=== PATIENT | female | born 1960 | race Hispanic/Latino ===

== ENCOUNTER 2017-09-09 15:23 | Emergency (ER) | payer OTHER ==
[~2017-09-09 15:23] MED LIST: ATOR10 PO; BACL10TA PO; COLC0.6C3 PO; LISI1TAB11 PO; PANT40TA25 PO
[2017-09-09 16:08] LABS: BASOPHILS % (AUTO) 0.3 % (0.0-5.0); EOSINOPHILS % (AUTO) 0.9 % (0.0-8.0); LYMPHOCYTES % (AUTO) 21.7 % (21.0-51.0); MEAN CORPUSCULAR HEMOGLOBIN 28.3 pg (27.0-33.0); MEAN CORPUSCULAR HGB CONC 33.8 g/dL (32.0-36.0); MEAN CORPUSCULAR VOLUME 83.5 fL (79-99); MONOCYTES % (AUTO) 6.6 % (3.0-13.0); NEUTROPHILS % (AUTO) 70.5 % (40.0-77.0); NUCLEATED RED BLOOD CELLS 0.1 % (0.0-0.19); PLATELET COUNT (AUTO) 163 K/uL (130-400); RED BLOOD CELL COUNT(AUTO) 4.91 MIL/uL (4.00-5.50); RED CELL DISTRIBUTION WIDTH 15.3 % (11.0-15.5); WHITE BLOOD COUNT (AUTO) 5.1 K/uL (4.8-10.8)
[2017-09-09 16:27] LABS: APPEARANCE,URINE Clear (CLEAR); BILIRUBIN,URINE Negative (NEGATIVE); COLOR,URINE Yellow (YELLOW); GLUCOSE, URINE (UA) Negative (NEGATIVE); KETONES,URINE Negative (NEGATIVE); LEUKOCYTE ESTERASE ,URINE Negative (NEGATIVE); NITRATE,URINE Negative (NEGATIVE); OCCULT BLOOD,URINE Negative (NEGATIVE); PROTEIN,URINE Negative (NEGATIVE); UROBILINOGEN,URINE 0.2 mg/dL (0.2-1.0)
[2017-09-09 16:29] LABS: POTASSIUM 3.8 mmol/L (3.5-5.1)
[2017-09-09] MEDS ORDERED: METOCLOPRAMIDE 10 MG/2 ML VIAL ONE (16:30)
[2017-09-09] MEDS ORDERED: SODIUM CHLORIDE 0.9% 1000ML 1,000 ML IV ONE (16:30)
[2017-09-09] MEDS ORDERED: MECLIZINE HCL 25 MG TABLET ONE (16:30)
[2017-09-09 16:34] LABS: ALBUMIN 4.1 g/dL (3.5-5.0); BILIRUBIN,TOTAL 0.4 mg/dL (0.2-1.0); TOTAL PROTEIN, SERUM 7.9 g/dL (6.0-8.3)
[2017-10-09] MEDS ORDERED: LORA10TA7 PO (18:27)
== END 2017-09-09 18:53 | disposition home or self-care (01) ==
LOC: EDH 15:23
DX: R42 Dizziness and giddiness (principal); R94.5 Abnormal results of liver function studies; I10 Essential (primary) hypertension; M10.9 Gout, unspecified; M19.90 Unspecified osteoarthritis, unspecified site; Z88.8 Allergy status to other drugs, medicaments and biological substances; Z90.710 Acquired absence of both cervix and uterus
CPT/HCPCS: 36415; 71045; 80053; 81003; 84484; 85025; 93005; 96361; 96374; 99285; J2765; J7030

== ENCOUNTER → 2018-07-04 | Outpatient (CLI) | payer OTHER ==
[~2018-07-04] MED LIST changes: +LORA10TA7 PO
== END | disposition home or self-care (01) ==
LOC: RAH 08:44
PROVIDERS: ATTEND Family Medicine
DX: Z12.31 Encounter for screening mammogram for malignant neoplasm of breast (principal)
CPT/HCPCS: 77067

== ENCOUNTER → 2019-07-10 | Outpatient (CLI) | payer OTHER ==
[~2019-07-10] MED LIST changes: -LISI1TAB11 PO; +LISI1TAB28 PO
== END | disposition home or self-care (01) ==
LOC: RAH 14:49
PROVIDERS: ATTEND Family Medicine
DX: Z12.31 Encounter for screening mammogram for malignant neoplasm of breast (principal)
CPT/HCPCS: 77067

== ENCOUNTER → 2020-07-13 | Outpatient (CLI) | payer OTHER ==
[~2020-07-13] MED LIST changes: -LISI1TAB28 PO; +LISI1TAB51 PO; -PANT40TA25 PO; +PANT40TA54 PO
== END | disposition home or self-care (01) ==
LOC: RAH 13:42
PROVIDERS: ATTEND Family Medicine
DX: Z12.31 Encounter for screening mammogram for malignant neoplasm of breast (principal)
CPT/HCPCS: 77067

== ENCOUNTER → 2020-07-20 | Outpatient (CLI) | payer OTHER | END | disposition home or self-care (01) | LOC: SHCH 08:11 | PROVIDERS: ATTEND Internal Medicine Cardiovascular Disease | DX: R07.89 Other chest pain (principal) | CPT/HCPCS: 93306; 93356 ==

== ENCOUNTER 2021-03-25 18:32 | Emergency (ER) | payer OTHER ==
[~2021-03-25] VITALS: Ht 160 cm; Wt 92.5 kg
[2021-03-25 18:33] VITALS: BP 134/83
[2021-03-25] MEDS ORDERED: ONDANSETRON 4MG INJ IVP ONE (19:00)
[2021-03-25] MEDS ORDERED: DICYCLOMINE 20MG (10MG/ML) AMP IM ONE (19:00)
[2021-03-25] MEDS ORDERED: 0.9%NACL 1000ML 1,000 ML IV ONE ×2 (19:00→19:14)
[2021-03-25] MEDS ORDERED: MORPHINE 4 MG SYG IVP ONE (19:00)
[2021-03-25] MEDS ORDERED: ACETAMINOPHEN 325 MG TAB PO ONE (19:00)
[2021-03-25] MEDS ORDERED: PANTOPRAZOLE 40 MG/VIAL IVP ONE (19:00)
[2021-03-25] MEDS ORDERED: PANTOPRAZOLE 40 MG/VIAL ONE (19:13)
[2021-03-25] MEDS ORDERED: MORPHINE 4 MG SYG ONE (19:13)
[2021-03-25] MEDS ORDERED: ACETAMINOPHEN 325 MG TAB ONE (19:13)
[2021-03-25] MEDS ORDERED: ONDANSETRON 4MG INJ ONE (19:13)
[2021-03-25] MEDS ORDERED: DICYCLOMINE HCL 20 MG TAB ONE (19:13)
[2021-03-25 19:36] LABS: BASOPHILS % (AUTO) 0.3 % (0.0-5.0); EOSINOPHILS % (AUTO) 0.1 % (0.0-8.0); HEMATOCRIT 38.3 % (36-48); LYMPHOCYTES % (AUTO) 16.5 % (21.0-51.0); MEAN CORPUSCULAR HEMOGLOBIN 31.3 pg (27.0-33.0); MEAN CORPUSCULAR HGB CONC 34.2 g/dL (32.0-36.0); MEAN CORPUSCULAR VOLUME 91.6 fL (79-99); MONOCYTES % (AUTO) 7.4 % (3.0-13.0); NEUTROPHILS % (AUTO) 75.4 % (40.0-77.0); PLATELET COUNT (AUTO) 170 K/uL (130-400); RED BLOOD CELL COUNT(AUTO) 4.18 MIL/uL (4.00-5.50); RED CELL DISTRIBUTION WIDTH 13.3 % (11.0-15.5); WHITE BLOOD COUNT (AUTO) 7.5 K/uL (4.8-10.8)
[2021-03-25 19:48] VITALS: BP 149/70
[2021-03-25 19:48] LABS: CREATININE 0.9 mg/dL (0.5-1.5); POTASSIUM 3.6 mmol/L (3.5-5.1)
[2021-03-25 19:52] LABS: ALBUMIN 4.3 g/dL (3.5-5.0); BILIRUBIN,TOTAL 0.7 mg/dL (0.2-1.0)
[2021-03-25 19:53] LABS: APPEARANCE,URINE Clear (CLEAR); BILIRUBIN,URINE Negative (NEGATIVE); COLOR,URINE Yellow (YELLOW); GLUCOSE, URINE (UA) Negative (NEGATIVE); KETONES,URINE Negative (NEGATIVE); LEUKOCYTE ESTERASE ,URINE Negative (NEGATIVE); NITRATE,URINE Negative (NEGATIVE); OCCULT BLOOD,URINE Negative (NEGATIVE); PH,URINE 5.5 (5.0-8.0); PROTEIN,URINE Negative (NEGATIVE)
[2021-03-25 20:30] VITALS: BP 123/73
[2021-03-25 21:42] VITALS: BP_SYST 106; BP_SYST 123; BP_DIAS 61; BP_DIAS 73
[2021-03-25 22:38] VITALS: BP 102/67
[2021-03-25] MEDS ORDERED: PANT40TA54 PO (23:42)
[2021-03-25] MEDS ORDERED: DICY20TA2 PO (23:42)
[2021-03-25] MEDS ORDERED: ACET-3194 PO (23:42)
[2021-03-25 23:48] VITALS: BP 106/65
== END 2021-03-26 00:21 | disposition home or self-care (01) ==
LOC: EDH 18:32
DX: K29.00 Acute gastritis without bleeding (principal); I10 Essential (primary) hypertension; F41.9 Anxiety disorder, unspecified; F32.9 Major depressive disorder, single episode, unspecified; Z90.710 Acquired absence of both cervix and uterus; Z79.899 Other long term (current) drug therapy
CPT/HCPCS: 36415; 71045; 74177; 76705; 80053; 81003; 83690; 84484; 85025; 93005 ×2; 96361; 96374; 96375; 99285; C9113; J2270; J2405; J7030

== ENCOUNTER 2021-04-27 09:33 | Inpatient (IN) | payer OTHER ==
[~2021-04-27] VITALS: Ht 157.5 cm; Wt 118.1 kg
[2021-04-27] VITALS (8 sets, daily range): BP systolic 92–111; BP diastolic 49–71
[~2021-04-27 09:33] MED LIST changes: +ACET-3194 PO; +DICY20TA2 PO
[2021-04-27] MEDS ORDERED: FAMOTIDINE 20MG VIAL IV SCH (10:30)
[2021-04-27] MEDS ORDERED: ONDANSETRON 4MG INJ IVP SCH (10:30)
[2021-04-27] MEDS ORDERED: 0.9%NACL 1000ML 1,000 ML IV SCH (10:30)
[2021-04-27 10:36] LABS: BASOPHILS % (AUTO) 0.5 % (0.0-5.0); HEMATOCRIT 47.1 % (36-48); LYMPHOCYTES % (AUTO) 16.2 % (21.0-51.0); MEAN CORPUSCULAR HEMOGLOBIN 30.3 pg (27.0-33.0); MEAN CORPUSCULAR HGB CONC 33.5 g/dL (32.0-36.0); MEAN CORPUSCULAR VOLUME 90.4 fL (79-99); MONOCYTES % (AUTO) 12.3 % (3.0-13.0); NEUTROPHILS % (AUTO) 70.6 % (40.0-77.0); PLATELET COUNT (AUTO) 242 K/uL (130-400); RED BLOOD CELL COUNT(AUTO) 5.21 MIL/uL (4.00-5.50); WHITE BLOOD COUNT (AUTO) 5.7 K/uL (4.8-10.8)
[2021-04-27 10:45] LABS: CREATININE 2.1 mg/dL (0.5-1.5)
[2021-04-27 10:46] LABS: POTASSIUM 3.9 mmol/L (3.5-5.1)
[2021-04-27 10:50] LABS: BILIRUBIN,TOTAL 1.9 mg/dL (0.2-1.0); TOTAL PROTEIN, SERUM 9.1 g/dL (6.0-8.3)
[2021-04-27] MEDS ORDERED: MORPHINE 2 MG SYG ONE (12:53)
[2021-04-27] MEDS ORDERED: MORPHINE 2 MG SYG IM SCH (13:00)
[2021-04-27 13:25] LABS: APPEARANCE,URINE Clear (CLEAR); BILIRUBIN,URINE Negative (NEGATIVE); COLOR,URINE Dark Yellow (YELLOW); GLUCOSE, URINE (UA) Negative (NEGATIVE); KETONES,URINE Trace mg/dL (NEGATIVE); LEUKOCYTE ESTERASE ,URINE Trace (NEGATIVE); NITRATE,URINE Negative (NEGATIVE); OCCULT BLOOD,URINE Negative (NEGATIVE); PROTEIN,URINE Trace mg/dL (NEGATIVE)
[2021-04-27] MEDS ORDERED: ZOSYN 3.375GM+NS 50ML 3.38 GM in 0.9%NACL 50ML 50 ML IV SCH (13:30)
[2021-04-27] MEDS ORDERED: 0.9%NACL 1000ML 1,000 ML IV ONE ×2 (13:30→15:00)
[2021-04-27 13:31] LABS: BACTERIA,URINE Rare /HPF (None Seen); RBC,URINE 0-1 /HPF (0-1); SQUAMOUS EPITHELIAL CELL,UR Few /HPF (0-2); WBC,URINE 0-1 /HPF (0-1)
[2021-04-27] MEDS: 0.9%NACL 50ML 50 ML IV SCH (13:36)
[2021-04-27] MEDS: ZOSYN 3.375GM +NS 50ML IV SCH (13:36)
[2021-04-27] MEDS ORDERED: LACTATED RINGERS 1000ML 1,000 ML IV ONE (15:41)
[2021-04-27] MEDS ORDERED: LACTATED RINGERS 1000ML 1,000 ML IV SCH (19:30)
[2021-04-27] MEDS: FAMOTIDINE 20MG VIAL IV SCH (21:00)
[2021-04-28] VITALS (7 sets, daily range): BP systolic 92–126; BP diastolic 48–75
[2021-04-28] MEDS: 0.9%NACL 50ML 50 ML IV SCH (01:21)
[2021-04-28] MEDS: ZOSYN 3.375GM +NS 50ML IV SCH ×2 (01:21→14:32)
[2021-04-28] MEDS ORDERED: LACTATED RINGERS 1000ML 1,000 ML IV ONE (03:55)
[2021-04-28] MEDS: LACTATED RINGERS 1000ML 1,000 ML IV SCH ×2 (04:30→14:32)
[2021-04-28] MEDS ORDERED: CALC-1009 PO (04:44)
[2021-04-28] MEDS ORDERED: AEC81 PO (04:44)
[2021-04-28] MEDS ORDERED: FERR-82 PO (04:44)
[2021-04-28] MEDS ORDERED: LISI20TA24 PO (04:44)
[2021-04-28 05:41] LABS: BASOPHILS % (AUTO) 0.2 % (0.0-5.0); EOSINOPHILS % (AUTO) 0.2 % (0.0-8.0); HEMATOCRIT 36.1 % (36-48); LYMPHOCYTES % (AUTO) 26.9 % (21.0-51.0); MEAN CORPUSCULAR HEMOGLOBIN 30.3 pg (27.0-33.0); MEAN CORPUSCULAR HGB CONC 33.5 g/dL (32.0-36.0); MEAN CORPUSCULAR VOLUME 90.5 fL (79-99); NEUTROPHILS % (AUTO) 56.2 % (40.0-77.0); PLATELET COUNT (AUTO) 151 K/uL (130-400); RED BLOOD CELL COUNT(AUTO) 3.99 MIL/uL (4.00-5.50); RED CELL DISTRIBUTION WIDTH 13.6 % (11.0-15.5); WHITE BLOOD COUNT (AUTO) 4.1 K/uL (4.8-10.8)
[2021-04-28 06:14] LABS: ALBUMIN 3.2 g/dL (3.5-5.0); BILIRUBIN,TOTAL 1.6 mg/dL (0.2-1.0); CREATININE 1.2 mg/dL (0.5-1.5); POTASSIUM 3.4 mmol/L (3.5-5.1); TOTAL PROTEIN, SERUM 6.7 g/dL (6.0-8.3)
[2021-04-28] MEDS ORDERED: FEBU80TA3 PO (08:55)
[2021-04-28] MEDS ORDERED: RABE20TA30 PO (08:57)
[2021-04-28] MEDS ORDERED: FERR-72 PO (08:59)
[2021-04-28] MEDS ORDERED: FEBUXOSTAT 40 MG TAB PO SCH (09:00)
[2021-04-28] MEDS: FAMOTIDINE 20MG VIAL IV SCH (20:42)
[2021-04-29] MEDS: LACTATED RINGERS 1000ML 1,000 ML IV SCH ×2 (00:30→20:52)
[2021-04-29 01:18] VITALS: BP 113/65
[2021-04-29] MEDS: ZOSYN 3.375GM +NS 50ML IV SCH ×2 (01:28→13:02)
[2021-04-29] MEDS: 0.9%NACL 50ML 50 ML IV SCH ×3 (01:29→13:02)
[2021-04-29 04:30] VITALS: BP 106/66
[2021-04-29 06:01] LABS: HEMATOCRIT 37.9 % (36-48); MEAN CORPUSCULAR HEMOGLOBIN 30.3 pg (27.0-33.0); MEAN CORPUSCULAR HGB CONC 32.7 g/dL (32.0-36.0); MEAN CORPUSCULAR VOLUME 92.7 fL (79-99); RED BLOOD CELL COUNT(AUTO) 4.09 MIL/uL (4.00-5.50); RED CELL DISTRIBUTION WIDTH 13.3 % (11.0-15.5); WHITE BLOOD COUNT (AUTO) 4.2 K/uL (4.8-10.8)
[2021-04-29 06:32] LABS: CREATININE 0.9 mg/dL (0.5-1.5); POTASSIUM 3.9 mmol/L (3.5-5.1)
[2021-04-29 08:00] VITALS: BP 108/62
[2021-04-29] MEDS ORDERED: MAGNESIUM CITRATE 296 ML SOLUTION PO ONE (09:00)
[2021-04-29 16:45] VITALS: BP 112/60
[2021-04-29 20:00] VITALS: BP 105/66
[2021-04-29] MEDS: FAMOTIDINE 20MG VIAL IV SCH (20:52)
[2021-04-29] MEDS: HYDROMORPHONE 0.5 MG SYG (0.5MG/0.5ML) IVP PRN (23:15)
[2021-04-29] MEDS: ONDANSETRON 4MG INJ IVP PRN (23:15)
[2021-04-29 23:32] VITALS: BP 115/67
[2021-04-30] MEDS: 0.9%NACL 50ML 50 ML IV SCH ×2 (03:26→13:31)
[2021-04-30] MEDS: ZOSYN 3.375GM +NS 50ML IV SCH ×2 (03:26→13:31)
[2021-04-30] MEDS: ONDANSETRON 4MG INJ IVP PRN (03:36)
[2021-04-30] MEDS: HYDROMORPHONE 0.5 MG SYG (0.5MG/0.5ML) IVP PRN ×3 (03:37→20:25)
[2021-04-30 04:00] VITALS: BP 117/70
[2021-04-30 08:50] VITALS: BP 110/69
[2021-04-30] MEDS: LACTATED RINGERS 1000ML 1,000 ML IV SCH ×2 (13:36→16:30)
[2021-04-30 15:14] VITALS: BP 97/58
[2021-04-30] MEDS ORDERED: VANCOMYCIN 1G/250ML KIT 250 ML IV ONE (17:17)
[2021-04-30] MEDS ORDERED: MAGNESIUM CITRATE 296 ML SOLUTION ONE (17:34)
[2021-04-30] MEDS ORDERED: MAGNESIUM CITRATE 296 ML SOLUTION PO ONE (18:00)
[2021-04-30 18:16] VITALS: BP 105/65
[2021-04-30 20:00] VITALS: BP 107/72
[2021-04-30] MEDS: FAMOTIDINE 20MG VIAL IV SCH (20:25)
[2021-05-01] VITALS (8 sets, daily range): BP systolic 85–125; BP diastolic 46–70
[2021-05-01] MEDS: 0.9%NACL 50ML 50 ML IV SCH (01:25)
[2021-05-01] MEDS: ZOSYN 3.375GM +NS 50ML IV SCH ×3 (01:25→20:37)
[2021-05-01] MEDS: HYDROMORPHONE 0.5 MG SYG (0.5MG/0.5ML) IVP PRN (02:13)
[2021-05-01 05:03] LABS: HEMATOCRIT 46.3 % (36-48); MEAN CORPUSCULAR HEMOGLOBIN 30.2 pg (27.0-33.0); MEAN CORPUSCULAR HGB CONC 32.8 g/dL (32.0-36.0); MEAN CORPUSCULAR VOLUME 91.9 fL (79-99); RED BLOOD CELL COUNT(AUTO) 5.04 MIL/uL (4.00-5.50); RED CELL DISTRIBUTION WIDTH 13.4 % (11.0-15.5); WHITE BLOOD COUNT (AUTO) 9.7 K/uL (4.8-10.8)
[2021-05-01 05:19] LABS: CREATININE 1.8 mg/dL (0.5-1.5); MAGNESIUM 3.2 mg/dL (1.80-2.40); POTASSIUM 3.7 mmol/L (3.5-5.1)
[2021-05-01] MEDS ORDERED: LACTATED RINGERS 1000ML IV SCH ×2 (09:30)
[2021-05-01] MEDS ORDERED: VANCOMYCIN PROTOCOL PER PHARMACY IV SCH (09:30)
[2021-05-01] MEDS ORDERED: 0.9%NACL 50ML 50 ML IV SCH ×2 (09:30→13:00)
[2021-05-01] MEDS: LACTATED RINGERS 1000ML 1,000 ML IV SCH ×3 (09:50→22:02)
[2021-05-01] MEDS ORDERED: LACTATED RINGERS 1000ML 1,000 ML IV SCH (10:30)
[2021-05-01] MEDS ORDERED: ZOSYN 3.375GM+NS 50ML 3.38 GM in 0.9%NACL 50ML 50 ML IV SCH (11:00)
[2021-05-01] MEDS ORDERED: BISACODYL 10 MG SUPP.RECT RC ONE (15:30)
[2021-05-01] MEDS ORDERED: MAGNESIUM CITRATE 296 ML SOLUTION ONE (17:06)
[2021-05-01] MEDS: MAGNESIUM CITRATE 296 ML SOLUTION NG ONE ×2 (17:06→17:10)
[2021-05-01] MEDS: VANCOMYCIN 750MG VIAL IVPB SCH (17:07)
[2021-05-01] MEDS: BISACODYL 10 MG SUPP.RECT RC ONE ×2 (17:09→17:10)
[2021-05-01 17:33] LABS: INR 1.26 (0.85-1.15); PROTHROMBIN TIME 13.4 SEC (9.6-11.6)
[2021-05-01 17:34] LABS: PARTIAL THROMBOPLASTIN TIME 31.2 SEC (26.3-35.5)
[2021-05-01] MEDS ORDERED: 0.9% NACL 250ML 250 ML IV SCH (18:00)
[2021-05-01] MEDS: FAMOTIDINE 20MG VIAL IV SCH (20:37)
[2021-05-01] MEDS ORDERED: ENOXAPARIN SODIUM 100 MG/1 ML SQ SCH (21:00)
[2021-05-01] MEDS ORDERED: 0.9%NACL 1000ML 1,503 ML IV ONE (21:00)
[2021-05-01] MEDS: HYDROCORTISONE SOD SUCCINATE 100 MG/2 ML VIAL IV SCH (21:29)
[2021-05-01 21:47] LABS: MAGNESIUM 3.4 mg/dL (1.80-2.40); PHOSPHORUS 3.9 mg/dL (2.5-4.9)
[2021-05-01 21:58] LABS: HEMATOCRIT 40.9 % (36-48); MEAN CORPUSCULAR HEMOGLOBIN 31.1 pg (27.0-33.0); MEAN CORPUSCULAR HGB CONC 33.3 g/dL (32.0-36.0); MEAN CORPUSCULAR VOLUME 93.4 fL (79-99); RED BLOOD CELL COUNT(AUTO) 4.38 MIL/uL (4.00-5.50); RED CELL DISTRIBUTION WIDTH 13.7 % (11.0-15.5); WHITE BLOOD COUNT (AUTO) 20.3 K/uL (4.8-10.8)
[2021-05-01 22:08] LABS: POTASSIUM 3.4 mmol/L (3.5-5.1)
[2021-05-01 22:12] LABS: BILIRUBIN,TOTAL 3.7 mg/dL (0.2-1.0); MAGNESIUM 3.4 mg/dL (1.80-2.40); TOTAL PROTEIN, SERUM 5.5 g/dL (6.0-8.3)
[2021-05-01] MEDS: HEPARIN 25,000 UNITS/250ML D5W 250 ML IV SCH (22:22)
[2021-05-01] MEDS ORDERED: ALBUMIN (HUMAN) 25% 100 ML IV ONE (23:28)
[2021-05-01] MEDS: ALBUMIN (HUMAN) 25% 100 ML IV SCH (23:30)
[2021-05-01] MEDS ORDERED: RENAL DOSE IV SCH (23:30)
[2021-05-01] MEDS: ALBUMIN (HUMAN) 25% 100 ML IV ONE ×2 (23:35→23:59)
[2021-05-01] MEDS: CEFEPIME HCL 2 GM VIAL IVP SCH (23:58)
[2021-05-01] MEDS: 1/2 NS 1000ML 1,000 ML IV SCH (23:59)
[2021-05-02] VITALS (7 sets, daily range): BP systolic 84–109; BP diastolic 51–66
[2021-05-02] MEDS: LIDOCAINE HCL-MPF 1% 2ML VIAL IV PRN ×2 (00:49→08:38)
[2021-05-02] MEDS: POTASSIUM CHLORIDE 10MEQ/100ML 100 ML IV PRN ×2 (00:49→08:37)
[2021-05-02] MEDS: HYDROCORTISONE SOD SUCCINATE 100 MG/2 ML VIAL IV SCH ×4 (02:50→20:10)
[2021-05-02] MEDS: HYDROMORPHONE 0.5 MG SYG (0.5MG/0.5ML) IVP PRN (02:50)
[2021-05-02 04:03] LABS: HEMATOCRIT 33.9 % (36-48); MEAN CORPUSCULAR HEMOGLOBIN 30.5 pg (27.0-33.0); MEAN CORPUSCULAR HGB CONC 33.3 g/dL (32.0-36.0); MEAN CORPUSCULAR VOLUME 91.6 fL (79-99); RED BLOOD CELL COUNT(AUTO) 3.7 MIL/uL (4.00-5.50); RED CELL DISTRIBUTION WIDTH 13.7 % (11.0-15.5); WHITE BLOOD COUNT (AUTO) 17.4 K/uL (4.8-10.8)
[2021-05-02 04:27] LABS: ABG BASE EXCESS 5.9 mmol/L (-2.0-3.0); ABG HCO3 29.2 mmol/L (21.0-28.0); ABG OXYGEN SATURATION 97.7 % (95.0-99.0); ABG PCO2 38 mmHg (32-45)
[2021-05-02] MEDS: 1/2 NS 1000ML 1,000 ML IV SCH (05:37)
[2021-05-02] MEDS ORDERED: 0.9%NACL 1000ML 1,000 ML IV SCH (06:30)
[2021-05-02 06:49] LABS: ALBUMIN 2.4 g/dL (3.5-5.0); BILIRUBIN,TOTAL 4.3 mg/dL (0.2-1.0); CREATININE 1.5 mg/dL (0.5-1.5); MAGNESIUM 3.5 mg/dL (1.80-2.40); POTASSIUM 3.4 mmol/L (3.5-5.1); TOTAL PROTEIN, SERUM 5.1 g/dL (6.0-8.3)
[2021-05-02] MEDS: IPRATROPIUM/ALBUTEROL SULFATE 3 ML SOLUTION IH SCH ×4 (07:29→18:56)
[2021-05-02] MEDS: ALBUMIN (HUMAN) 25% 100 ML IV SCH ×2 (08:31→18:38)
[2021-05-02] MEDS ORDERED: DEXTROSE 5%-WATER 1,000 ML IV SCH (10:00)
[2021-05-02] MEDS ORDERED: DEXTROSE 5%-WATER 1,000 ML IV ONE (11:10)
[2021-05-02] MEDS: CEFEPIME HCL 2 GM VIAL IVP SCH ×2 (11:31→23:12)
[2021-05-02] MEDS: HEPARIN 25,000 UNITS/250ML D5W 250 ML IV SCH (11:51)
[2021-05-02] MEDS: LACTATED RINGERS 1000ML 1,000 ML IV SCH ×3 (15:21→23:13)
[2021-05-02] MEDS ORDERED: ALBUMIN (HUMAN) 25% 100 ML IV ONE (18:36)
[2021-05-02] MEDS: VANCOMYCIN 750MG VIAL IVPB SCH (18:38)
[2021-05-02] MEDS ORDERED: 0.9% NACL 250ML 250 ML IV ONE (19:30)
[2021-05-02] MEDS ORDERED: VANCOMYCIN KIT 1 GM/250 ML IV.KIT IV ONE (20:00)
[2021-05-02] MEDS: FAMOTIDINE 20MG VIAL IV SCH (20:10)
[2021-05-03] MEDS: IPRATROPIUM/ALBUTEROL SULFATE 3 ML SOLUTION IH SCH ×5 (01:05→23:37)
[2021-05-03] MEDS: HYDROCORTISONE SOD SUCCINATE 100 MG/2 ML VIAL IV SCH ×2 (02:34→08:51)
[2021-05-03 03:42] VITALS: BP 117/64
[2021-05-03 04:27] LABS: ALBUMIN 2.6 g/dL (3.5-5.0); CREATININE 0.9 mg/dL (0.5-1.5); POTASSIUM 3.1 mmol/L (3.5-5.1); TOTAL PROTEIN, SERUM 5.2 g/dL (6.0-8.3)
[2021-05-03] MEDS: VANCOMYCIN 500MG+NS 100ML IVPB IV SCH ×2 (05:32→17:48)
[2021-05-03] MEDS: LACTATED RINGERS 1000ML 1,000 ML IV SCH ×3 (05:33→20:20)
[2021-05-03] MEDS ORDERED: 0.9%NACL 100ML 100 ML IV SCH (06:00)
[2021-05-03] MEDS: LIDOCAINE HCL-MPF 1% 2ML VIAL IV PRN (06:07)
[2021-05-03] MEDS: POTASSIUM CHLORIDE 10MEQ/100ML 100 ML IV PRN (06:07)
[2021-05-03 06:36] LABS: HEMATOCRIT 29.9 % (36-48); MEAN CORPUSCULAR HEMOGLOBIN 30.4 pg (27.0-33.0); MEAN CORPUSCULAR HGB CONC 32.1 g/dL (32.0-36.0); MEAN CORPUSCULAR VOLUME 94.6 fL (79-99); RED BLOOD CELL COUNT(AUTO) 3.16 MIL/uL (4.00-5.50); RED CELL DISTRIBUTION WIDTH 13.8 % (11.0-15.5); WHITE BLOOD COUNT (AUTO) 11.6 K/uL (4.8-10.8)
[2021-05-03 07:55] VITALS: BP 92/58
[2021-05-03] MEDS: FAMOTIDINE 20MG VIAL IV SCH ×2 (08:50→20:19)
[2021-05-03] MEDS: CEFEPIME HCL 2 GM VIAL IVP SCH (11:38)
[2021-05-03 11:54] VITALS: BP 105/66
[2021-05-03 16:00] VITALS: BP 159/135
[2021-05-03] MEDS: HYDROMORPHONE 0.5 MG SYG (0.5MG/0.5ML) IVP PRN (17:51)
[2021-05-03 20:12] VITALS: BP 95/65
[2021-05-03] MEDS: VANCOMYCIN 1G/250ML KIT 250 ML IV SCH (20:19)
[2021-05-04 00:12] VITALS: BP 92/51
[2021-05-04] MEDS: CEFEPIME HCL 2 GM VIAL IVP SCH ×3 (00:28→23:22)
[2021-05-04 04:03] LABS: HEMATOCRIT 32.7 % (36-48); MEAN CORPUSCULAR HEMOGLOBIN 30.1 pg (27.0-33.0); MEAN CORPUSCULAR HGB CONC 31.8 g/dL (32.0-36.0); MEAN CORPUSCULAR VOLUME 94.8 fL (79-99); RED BLOOD CELL COUNT(AUTO) 3.45 MIL/uL (4.00-5.50); RED CELL DISTRIBUTION WIDTH 14.1 % (11.0-15.5); WHITE BLOOD COUNT (AUTO) 12.1 K/uL (4.8-10.8)
[2021-05-04 04:12] VITALS: BP 93/62
[2021-05-04 04:12] LABS: ALBUMIN 2.1 g/dL (3.5-5.0); CREATININE 0.8 mg/dL (0.5-1.5); MAGNESIUM 3.1 mg/dL (1.80-2.40); PHOSPHORUS 2.5 mg/dL (2.5-4.9); POTASSIUM 3.3 mmol/L (3.5-5.1)
[2021-05-04] MEDS: LIDOCAINE HCL-MPF 1% 2ML VIAL IV PRN (04:54)
[2021-05-04] MEDS: POTASSIUM CHLORIDE 10MEQ/100ML 100 ML IV PRN (04:54)
[2021-05-04 07:26] VITALS: BP 111/83
[2021-05-04] MEDS: IPRATROPIUM/ALBUTEROL SULFATE 3 ML SOLUTION IH SCH ×4 (08:07→23:44)
[2021-05-04] MEDS ORDERED: DEXTROSE 5%-WATER 500 ML IV SCH (10:00)
[2021-05-04] MEDS: LACTULOSE 20 GM/30 ML UDCUP NG SCH ×2 (10:54→22:43)
[2021-05-04] MEDS: FAMOTIDINE 20MG VIAL IV SCH ×2 (10:55→22:43)
[2021-05-04] MEDS: BISACODYL 10 MG SUPP.RECT RC SCH (10:55)
[2021-05-04] MEDS: VANCOMYCIN 1G/250ML KIT 250 ML IV SCH ×2 (11:18→22:44)
[2021-05-04 12:00] VITALS: BP 122/72
[2021-05-04] MEDS: LACTATED RINGERS 1000ML 1,000 ML IV SCH (15:21)
[2021-05-04 16:00] VITALS: BP 119/79
[2021-05-04 20:12] VITALS: BP 106/66
[2021-05-05] VITALS (7 sets, daily range): BP systolic 108–139; BP diastolic 51–85
[2021-05-05] MEDS: HYDROMORPHONE 0.5 MG SYG (0.5MG/0.5ML) IVP PRN ×3 (00:50→21:22)
[2021-05-05] MEDS: LACTATED RINGERS 1000ML 1,000 ML IV SCH ×3 (01:05→23:52)
[2021-05-05 04:17] LABS: HEMATOCRIT 31.6 % (36-48); MEAN CORPUSCULAR HEMOGLOBIN 30.3 pg (27.0-33.0); MEAN CORPUSCULAR HGB CONC 31.6 g/dL (32.0-36.0); MEAN CORPUSCULAR VOLUME 95.8 fL (79-99); PLATELET COUNT (AUTO) 59 K/uL (130-400); RED CELL DISTRIBUTION WIDTH 14.3 % (11.0-15.5); WHITE BLOOD COUNT (AUTO) 7.7 K/uL (4.8-10.8)
[2021-05-05 04:23] LABS: CREATININE 0.8 mg/dL (0.5-1.5); POTASSIUM 3.7 mmol/L (3.5-5.1)
[2021-05-05] MEDS ORDERED: DIATR MEGLU/DIATRIZOATE SODIUM 30 ML BOTTLE ONE ×2 (06:34)
[2021-05-05] MEDS: IPRATROPIUM/ALBUTEROL SULFATE 3 ML SOLUTION IH SCH ×5 (07:15→23:32)
[2021-05-05] MEDS: BISACODYL 10 MG SUPP.RECT RC SCH (08:00)
[2021-05-05] MEDS: LACTULOSE 20 GM/30 ML UDCUP NG SCH ×2 (08:42→21:22)
[2021-05-05] MEDS: FAMOTIDINE 20MG VIAL IV SCH ×2 (09:01→21:22)
[2021-05-05] MEDS: CEFEPIME HCL 2 GM VIAL IVP SCH ×2 (12:14→23:52)
[2021-05-05] MEDS: VANCOMYCIN 1G/250ML KIT 250 ML IV SCH ×2 (12:14→21:23)
[2021-05-06] VITALS (34 sets, daily range): BP systolic 78–128; BP diastolic 33–96
[2021-05-06] MEDS ORDERED: HYDROMORPHONE 1 MG INJ ONE (00:17)
[2021-05-06] MEDS: HYDROMORPHONE 1 MG INJ IVP PRN ×3 (00:20→21:06)
[2021-05-06] MEDS ORDERED: 0.9% NACL 500ML IV.SOLN 500 ML IV SCH (02:00)
[2021-05-06] MEDS ORDERED: ACETAMINOPHEN 650 MG SUPPOSITORY RC ONE (02:46)
[2021-05-06] MEDS: ACETAMINOPHEN 650 MG SUPPOSITORY RC PRN (03:01)
[2021-05-06 03:51] LABS: HEMATOCRIT 43.6 % (36-48); MEAN CORPUSCULAR HEMOGLOBIN 30.1 pg (27.0-33.0); MEAN CORPUSCULAR HGB CONC 31.9 g/dL (32.0-36.0); MEAN CORPUSCULAR VOLUME 94.4 fL (79-99); NUCLEATED RED BLOOD CELLS 0.4 % (0.0-0.19); RED BLOOD CELL COUNT(AUTO) 4.62 MIL/uL (4.00-5.50); RED CELL DISTRIBUTION WIDTH 14.6 % (11.0-15.5); WHITE BLOOD COUNT (AUTO) 4.5 K/uL (4.8-10.8)
[2021-05-06 04:06] LABS: CREATININE 1.4 mg/dL (0.5-1.5); POTASSIUM 3.8 mmol/L (3.5-5.1)
[2021-05-06] MEDS: IPRATROPIUM/ALBUTEROL SULFATE 3 ML SOLUTION IH SCH (06:00)
[2021-05-06] MEDS: LACTATED RINGERS 1000ML 1,000 ML IV SCH ×3 (07:05→22:57)
[2021-05-06] MEDS: BISACODYL 10 MG SUPP.RECT RC SCH (08:00)
[2021-05-06 08:34] LABS: INR 1.15 (0.85-1.15); PROTHROMBIN TIME 12.4 SEC (9.6-11.6)
[2021-05-06 08:35] LABS: PARTIAL THROMBOPLASTIN TIME 30.8 SEC (26.3-35.5)
[2021-05-06] MEDS: VANCOMYCIN 1G/250ML KIT 250 ML IV SCH ×2 (08:43→21:00)
[2021-05-06] MEDS: FAMOTIDINE 20MG VIAL IV SCH (08:43)
[2021-05-06] MEDS ORDERED: NOREPINEPHRINE 4MG/NS 250ML 250 ML IV ONE (09:38)
[2021-05-06] MEDS ORDERED: ZOSYN 3.375GM+NS 50ML 3.38 GM in 0.9%NACL 50ML 50 ML IV SCH (10:00)
[2021-05-06] MEDS ORDERED: RENAL DOSE IV PRN (10:00)
[2021-05-06] MEDS ORDERED: PHARMACY COMMUNICATION MISC SCH (10:30)
[2021-05-06 10:50] LABS: ALBUMIN 1.7 g/dL (3.5-5.0); BILIRUBIN,TOTAL 3.8 mg/dL (0.2-1.0); POTASSIUM 4.2 mmol/L (3.5-5.1); TOTAL PROTEIN, SERUM 4.3 g/dL (6.0-8.3)
[2021-05-06 10:59] LABS: CREATININE 1.5 mg/dL (0.5-1.5)
[2021-05-06] MEDS ORDERED: IPRATROPIUM 0.5 MG/2.5 ML INH IH SCH (12:00)
[2021-05-06] MEDS: LACTULOSE 20 GM/30 ML UDCUP NG SCH ×2 (13:32→20:57)
[2021-05-06] MEDS: ZOSYN 3.375GM+NS 50ML 50 ML IV SCH ×2 (13:32→18:26)
[2021-05-06] MEDS: CEFEPIME HCL 2 GM VIAL IVP SCH ×2 (13:32→23:36)
[2021-05-06] MEDS: LACTATED RINGERS 1000ML IV SCH (13:38)
[2021-05-06] MEDS ORDERED: [UNRECOGNIZED DRUG - NUTRITION] IV SCH (18:00)
[2021-05-06] MEDS: PANTOPRAZOLE 40 MG/VIAL IVP SCH (20:57)
[2021-05-06] MEDS: ACETAMINOPHEN 325 MG TAB PO PRN (22:56)
[2021-05-07] VITALS (52 sets, daily range): BP systolic 85–122; BP diastolic 35–80
[2021-05-07] MEDS: ZOSYN 3.375GM+NS 50ML 50 ML IV SCH ×3 (01:55→16:58)
[2021-05-07] MEDS: LACTATED RINGERS 1000ML 1,000 ML IV SCH ×2 (04:00→16:19)
[2021-05-07 04:05] LABS: POTASSIUM 3.9 mmol/L (3.5-5.1)
[2021-05-07 04:48] LABS: BASOPHILS % (AUTO) 0.4 % (0.0-5.0); EOSINOPHILS % (AUTO) 0.1 % (0.0-8.0); HEMATOCRIT 34.3 % (36-48); LYMPHOCYTES % (AUTO) 8.4 % (21.0-51.0); MEAN CORPUSCULAR HEMOGLOBIN 30.4 pg (27.0-33.0); MEAN CORPUSCULAR HGB CONC 31.2 g/dL (32.0-36.0); MEAN CORPUSCULAR VOLUME 97.4 fL (79-99); MONOCYTES % (AUTO) 0.9 % (3.0-13.0); PLATELET COUNT (AUTO) 57 K/uL (130-400); RED BLOOD CELL COUNT(AUTO) 3.52 MIL/uL (4.00-5.50); WHITE BLOOD COUNT (AUTO) 10.2 K/uL (4.8-10.8)
[2021-05-07] MEDS ORDERED: NOREPINEPHRINE 4MG/NS 250ML 250 ML IV ONE ×2 (06:03→17:49)
[2021-05-07] MEDS: HYDROMORPHONE 1 MG INJ IVP PRN (06:10)
[2021-05-07] MEDS: IPRATROPIUM/ALBUTEROL SULFATE 3 ML SOLUTION IH SCH ×3 (06:40→18:34)
[2021-05-07] MEDS: VANCOMYCIN 1G/250ML KIT 250 ML IV SCH ×2 (09:32→21:00)
[2021-05-07] MEDS: FLUCONAZOLE 400 MG/NS 200 ML 200 ML IV SCH (09:32)
[2021-05-07] MEDS: FAT EMULSIONS 20% 250ML 250 ML IV SCH (09:32)
[2021-05-07] MEDS: PANTOPRAZOLE 40 MG/VIAL IVP SCH ×2 (09:32→21:10)
[2021-05-07] MEDS: LACTULOSE 20 GM/30 ML UDCUP NG SCH ×2 (09:36→21:10)
[2021-05-07] MEDS: CEFEPIME HCL 2 GM VIAL IVP SCH ×2 (09:38→23:17)
[2021-05-07] MEDS: CHLORHEXIDINE GLUCONATE 473 ML MOUTHWASH MM SCH ×2 (14:00→21:11)
[2021-05-07] MEDS ORDERED: [UNRECOGNIZED DRUG - NUTRITION] IV SCH (19:00)
[2021-05-08] VITALS (21 sets, daily range): BP systolic 81–135; BP diastolic 47–70
[2021-05-08] MEDS: IPRATROPIUM/ALBUTEROL SULFATE 3 ML SOLUTION IH SCH ×4 (00:01→23:25)
[2021-05-08] MEDS: HYDROMORPHONE 1 MG INJ IVP PRN ×4 (01:35→20:13)
[2021-05-08] MEDS: ZOSYN 3.375GM+NS 50ML 50 ML IV SCH ×3 (02:20→18:00)
[2021-05-08] MEDS ORDERED: NOREPINEPHRINE 4MG/NS 250ML 250 ML IV ONE (02:23)
[2021-05-08 03:40] LABS: HEMATOCRIT 33.1 % (36-48); MEAN CORPUSCULAR HGB CONC 31.4 g/dL (32.0-36.0); MEAN CORPUSCULAR VOLUME 95.4 fL (79-99); NUCLEATED RED BLOOD CELLS 0.1 % (0.0-0.19); RED BLOOD CELL COUNT(AUTO) 3.47 MIL/uL (4.00-5.50); RED CELL DISTRIBUTION WIDTH 15.2 % (11.0-15.5); WHITE BLOOD COUNT (AUTO) 16.4 K/uL (4.8-10.8)
[2021-05-08 04:24] LABS: POTASSIUM 3.7 mmol/L (3.5-5.1)
[2021-05-08 04:25] LABS: ALBUMIN 1.1 g/dL (3.5-5.0); BILIRUBIN,TOTAL 2.6 mg/dL (0.2-1.0); CREATININE 2.5 mg/dL (0.5-1.5); PHOSPHORUS 3.5 mg/dL (2.5-4.9); TOTAL PROTEIN, SERUM 4.5 g/dL (6.0-8.3)
[2021-05-08] MEDS: POTASSIUM CHLORIDE 10MEQ/100ML 100 ML IV PRN (05:02)
[2021-05-08] MEDS: VANCOMYCIN 1G/250ML KIT 250 ML IV SCH ×2 (09:00→21:07)
[2021-05-08] MEDS: PANTOPRAZOLE 40 MG/VIAL IVP SCH ×2 (09:53→21:17)
[2021-05-08] MEDS: FLUCONAZOLE 400 MG/NS 200 ML 200 ML IV SCH (09:53)
[2021-05-08] MEDS: FAT EMULSIONS 20% 250ML 250 ML IV SCH (09:54)
[2021-05-08] MEDS: CHLORHEXIDINE GLUCONATE 473 ML MOUTHWASH MM SCH ×3 (09:56→21:18)
[2021-05-08] MEDS: CEFEPIME HCL 2 GM VIAL IVP SCH (12:59)
[2021-05-08] MEDS: LACTATED RINGERS 1000ML 1,000 ML IV SCH (13:40)
[2021-05-08] MEDS ORDERED: 0.9% NACL 250ML 250 ML ONE (20:41)
[2021-05-09] VITALS (23 sets, daily range): BP systolic 86–139; BP diastolic 47–94
[2021-05-09] MEDS: CEFEPIME HCL 2 GM VIAL IVP SCH ×3 (01:15→20:49)
[2021-05-09] MEDS: ZOSYN 3.375GM+NS 50ML 50 ML IV SCH ×2 (01:16→08:52)
[2021-05-09 03:37] LABS: HEMATOCRIT 28.5 % (36-48); MEAN CORPUSCULAR HEMOGLOBIN 30.1 pg (27.0-33.0); MEAN CORPUSCULAR HGB CONC 30.9 g/dL (32.0-36.0); MEAN CORPUSCULAR VOLUME 97.6 fL (79-99); NUCLEATED RED BLOOD CELLS 0.2 % (0.0-0.19); PLATELET COUNT (AUTO) 50 K/uL (130-400); RED BLOOD CELL COUNT(AUTO) 2.92 MIL/uL (4.00-5.50); RED CELL DISTRIBUTION WIDTH 15.6 % (11.0-15.5); WHITE BLOOD COUNT (AUTO) 16.8 K/uL (4.8-10.8)
[2021-05-09 04:17] LABS: CREATININE 2.8 mg/dL (0.5-1.5); MAGNESIUM 3.6 mg/dL (1.80-2.40); PHOSPHORUS 3.5 mg/dL (2.5-4.9); POTASSIUM 4.4 mmol/L (3.5-5.1)
[2021-05-09] MEDS: IPRATROPIUM/ALBUTEROL SULFATE 3 ML SOLUTION IH SCH ×3 (06:51→18:41)
[2021-05-09] MEDS ORDERED: [UNRECOGNIZED DRUG - NUTRITION] IV SCH (08:00)
[2021-05-09 08:02] LABS: APPEARANCE,URINE TURBID (CLEAR); BILIRUBIN,URINE SMALL (NEGATIVE); COLOR,URINE YELLOW (YELLOW); GLUCOSE, URINE (UA) NEGATIVE (NEGATIVE); KETONES,URINE 5 mg/dL (NEGATIVE); LEUKOCYTE ESTERASE ,URINE TRACE (NEGATIVE); NITRATE,URINE NEGATIVE (NEGATIVE); OCCULT BLOOD,URINE MODERATE (NEGATIVE); PH,URINE 5.5 (5.0-8.0); PROTEIN,URINE 100 mg/dL (NEGATIVE); UROBILINOGEN,URINE 0.2 mg/dL (0.2-1.0)
[2021-05-09 08:03] LABS: CREATININE,URINE RANDOM 49 mg/dL (30-135); SODIUM,URINE RANDOM 22 mmol/l (40-220)
[2021-05-09] MEDS: LACTATED RINGERS 1000ML 1,000 ML IV SCH (08:25)
[2021-05-09 08:26] LABS: BACTERIA,URINE Few /HPF (None Seen); SQUAMOUS EPITHELIAL CELL,UR Few /HPF (0-2)
[2021-05-09 08:27] LABS: AMORPHOUS SEDIMENT,UR Moderate /LPF (None Seen); YEAST,URINE BUDDING Few /HPF (None Seen)
[2021-05-09] MEDS: PANTOPRAZOLE 40 MG/VIAL IVP SCH ×2 (08:31→20:49)
[2021-05-09] MEDS: FLUCONAZOLE 400 MG/NS 200 ML 200 ML IV SCH (08:31)
[2021-05-09] MEDS: CHLORHEXIDINE GLUCONATE 473 ML MOUTHWASH MM SCH ×3 (08:42→20:49)
[2021-05-09] MEDS: VANCOMYCIN 1G/250ML KIT 250 ML IV SCH (09:00)
[2021-05-09] MEDS: NOREPINEPHRINE BITARTRATE 8 MG in DEXTROSE 5%-WATER 250 ML IV PRN ×2 (09:03→19:54)
[2021-05-09] MEDS: DEXTROSE 5%-WATER 1,000 ML IV SCH (10:31)
[2021-05-09] MEDS: ALBUMIN (HUMAN) 25% 100 ML IV SCH ×2 (10:31→17:45)
[2021-05-09] MEDS: HYDROMORPHONE 1 MG INJ IVP PRN ×3 (10:46→23:53)
[2021-05-09] MEDS: LINEZOLID 600 MG/ISO-OSM 300 ML IV SCH ×2 (12:01→20:49)
[2021-05-09 23:00] LABS: ABG BASE EXCESS -4.7 mmol/L (-2.0-3.0); ABG HCO3 20.5 mmol/L (21.0-28.0); ABG OXYGEN SATURATION 96.6 % (95.0-99.0); ABG PCO2 39 mmHg (32-45)
[2021-05-10] VITALS (27 sets, daily range): BP systolic 97–132; BP diastolic 43–90
[2021-05-10] MEDS: IPRATROPIUM/ALBUTEROL SULFATE 3 ML SOLUTION IH SCH ×5 (00:29→23:14)
[2021-05-10 03:34] LABS: BASOPHILS % (AUTO) 0.1 % (0.0-5.0); EOSINOPHILS % (AUTO) 0.9 % (0.0-8.0); HEMATOCRIT 27.1 % (36-48); MEAN CORPUSCULAR HEMOGLOBIN 29.5 pg (27.0-33.0); MEAN CORPUSCULAR VOLUME 95.1 fL (79-99); NEUTROPHILS % (AUTO) 88.8 % (40.0-77.0); NUCLEATED RED BLOOD CELLS 0.3 % (0.0-0.19); PLATELET COUNT (AUTO) 40 K/uL (130-400); RED BLOOD CELL COUNT(AUTO) 2.85 MIL/uL (4.00-5.50); RED CELL DISTRIBUTION WIDTH 15.4 % (11.0-15.5); WHITE BLOOD COUNT (AUTO) 7.9 K/uL (4.8-10.8)
[2021-05-10] MEDS ORDERED: ALBUMIN (HUMAN) 25% 100 ML IV ONE (03:45)
[2021-05-10] MEDS: ALBUMIN (HUMAN) 25% 100 ML IV SCH (03:47)
[2021-05-10 03:48] LABS: CREATININE 3.5 mg/dL (0.5-1.5); POTASSIUM 4.3 mmol/L (3.5-5.1)
[2021-05-10] MEDS: DEXTROSE 5%-WATER 1,000 ML IV SCH (07:37)
[2021-05-10] MEDS: HYDROMORPHONE 1 MG INJ IVP PRN ×3 (07:42→15:39)
[2021-05-10] MEDS ORDERED: SODIUM BICARB 50MEQ 50ML VIAL IV SCH (08:00)
[2021-05-10] MEDS ORDERED: ALBUMIN (HUMAN) 5% 500 ML IV SCH (08:00)
[2021-05-10] MEDS: PANTOPRAZOLE 40 MG/VIAL IVP SCH ×2 (08:04→20:18)
[2021-05-10] MEDS: FLUCONAZOLE 400 MG/NS 200 ML 200 ML IV SCH (08:04)
[2021-05-10] MEDS: CHLORHEXIDINE GLUCONATE 473 ML MOUTHWASH MM SCH ×3 (08:05→20:18)
[2021-05-10] MEDS: NOREPINEPHRINE BITARTRATE 8 MG in DEXTROSE 5%-WATER 250 ML IV PRN (08:20)
[2021-05-10] MEDS ORDERED: [UNRECOGNIZED DRUG - NUTRITION] IV NR (08:30)
[2021-05-10] MEDS: FAT EMULSIONS 20% 250ML 250 ML IV SCH (09:19)
[2021-05-10] MEDS: LINEZOLID 600 MG/ISO-OSM 300 ML IV SCH (10:03)
[2021-05-10] MEDS: CEFEPIME HCL 2 GM VIAL IVP SCH (10:50)
[2021-05-10] MEDS: INSULIN HUMULIN R 100 UNIT/ML 3ML SQ SCH ×2 (11:31→17:24)
[2021-05-10] MEDS ORDERED: ALBUMIN (HUMAN) 5% 500 ML IV STA (16:24)
[2021-05-10] MEDS: PHENYLEPHRINE HCL 100 MG in 0.9% NACL 250ML 240 ML IV PRN (17:34)
[2021-05-10 18:47] LABS: ABG HCO3 16.4 mmol/L (21.0-28.0); ABG OXYGEN SATURATION 95.2 % (95.0-99.0); ABG PCO2 34 mmHg (32-45)
[2021-05-10] MEDS ORDERED: SODIUM BICARB 50MEQ 50ML VIAL IV STA (18:51)
[2021-05-11] VITALS (37 sets, daily range): BP systolic 82–133; BP diastolic 42–83
[2021-05-11] MEDS: LINEZOLID 600 MG/ISO-OSM 300 ML IV SCH ×4 (00:50→23:00)
[2021-05-11] MEDS: DEXTROSE 5%-WATER 1,000 ML IV SCH ×2 (00:50→20:54)
[2021-05-11] MEDS: CEFEPIME HCL 2 GM VIAL IVP SCH ×3 (00:50→13:00)
[2021-05-11 04:23] LABS: HEMATOCRIT 28.1 % (36-48); MEAN CORPUSCULAR HEMOGLOBIN 30.3 pg (27.0-33.0); MEAN CORPUSCULAR HGB CONC 29.5 g/dL (32.0-36.0); MEAN CORPUSCULAR VOLUME 102.6 fL (79-99); NUCLEATED RED BLOOD CELLS 0.4 % (0.0-0.19); RED BLOOD CELL COUNT(AUTO) 2.74 MIL/uL (4.00-5.50); RED CELL DISTRIBUTION WIDTH 16.1 % (11.0-15.5); WHITE BLOOD COUNT (AUTO) 24.9 K/uL (4.8-10.8)
[2021-05-11 04:42] LABS: INR 1.27 (0.85-1.15); PROTHROMBIN TIME 13.5 SEC (9.6-11.6)
[2021-05-11 04:43] LABS: PARTIAL THROMBOPLASTIN TIME 43.4 SEC (26.3-35.5)
[2021-05-11 04:45] LABS: ALBUMIN 1.7 g/dL (3.5-5.0); BILIRUBIN,TOTAL 2.9 mg/dL (0.2-1.0); CREATININE 3.5 mg/dL (0.5-1.5); POTASSIUM 5.7 mmol/L (3.5-5.1); TOTAL PROTEIN, SERUM 4.6 g/dL (6.0-8.3)
[2021-05-11] MEDS: INSULIN HUMULIN R 100 UNIT/ML 3ML SQ SCH ×4 (06:00→16:46)
[2021-05-11] MEDS: NOREPINEPHRINE BITARTRATE 8 MG in DEXTROSE 5%-WATER 250 ML IV PRN (06:10)
[2021-05-11] MEDS: IPRATROPIUM/ALBUTEROL SULFATE 3 ML SOLUTION IH SCH ×4 (07:04→23:46)
[2021-05-11 07:14] LABS: ABG BASE EXCESS -10.6 mmol/L (-2.0-3.0); ABG HCO3 14.8 mmol/L (21.0-28.0); ABG OXYGEN SATURATION 97.1 % (95.0-99.0); ABG PCO2 31 mmHg (32-45)
[2021-05-11] MEDS ORDERED: SODIUM BICARB 50MEQ 50ML VIAL IV SCH ×3 (08:00→09:00)
[2021-05-11] MEDS: FLUCONAZOLE 400 MG/NS 200 ML 200 ML IV SCH (08:16)
[2021-05-11] MEDS: PANTOPRAZOLE 40 MG/VIAL IVP SCH ×2 (08:16→20:59)
[2021-05-11] MEDS: CHLORHEXIDINE GLUCONATE 473 ML MOUTHWASH MM SCH ×3 (08:16→20:21)
[2021-05-11] MEDS ORDERED: NOREPINEPHRINE BITARTRATE 1 MG/1 ML ML IV ONE (08:44)
[2021-05-11] MEDS ORDERED: EPINEPHRINE 1 MG/ML 30ML VIAL IJ ONE (08:45)
[2021-05-11] MEDS ORDERED: CEFAZOLIN SODIUM 1 GM VIAL ONE (08:58)
[2021-05-11] MEDS ORDERED: SUCCINYLCHOLINE CHLORIDE 20 MG/ML 10 ML VIAL ONE (09:31)
[2021-05-11] MEDS ORDERED: LIDOCAINE PF 100MG/5ML (2%) SYRINGE 5ML ONE (09:31)
[2021-05-11] MEDS ORDERED: ONDANSETRON 4MG INJ ONE (09:32)
[2021-05-11] MEDS ORDERED: PROPOFOL 10 MG/ML 20ML VIAL IV ONE (09:32)
[2021-05-11] MEDS ORDERED: DEXAMETHASONE SOD PHOSPHATE 10MG/ML 1ML VIAL ONE (09:32)
[2021-05-11] MEDS ORDERED: NEOSTIGMINE 5MG/5ML SYR IV ONE (09:32)
[2021-05-11] MEDS ORDERED: GLYCOPYRROLATE 1 MG/5 ML SYRINGE ONE (09:32)
[2021-05-11] MEDS ORDERED: ROCURONIUM 10MG/1ML SYR 10 MG/ML ML ONE ×3 (09:33→12:45)
[2021-05-11] MEDS ORDERED: FENTANYL CITRATE PF 50 MCG/1 ML 2ML VIAL ONE (09:34)
[2021-05-11] MEDS ORDERED: SODIUM BICARB 8.4% 50ML SYRINGE ONE ×4 (10:11→13:50)
[2021-05-11] MEDS ORDERED: FENTANYL CITRATE PF 50 MCG/1 ML 5ML AMP IV ONE (10:21)
[2021-05-11 10:22] LABS: ABG BASE EXCESS -10.7 mmol/L (-2.0-3.0); ABG HCO3 17.1 mmol/L (21.0-28.0); ABG OXYGEN SATURATION 98.2 % (95.0-99.0); ABG PCO2 46 mmHg (32-45)
[2021-05-11 11:05] LABS: BASOPHILS % (AUTO) 0.4 % (0.0-5.0); EOSINOPHILS % (AUTO) 0.1 % (0.0-8.0); HEMATOCRIT 23.4 % (36-48); LYMPHOCYTES % (AUTO) 2.8 % (21.0-51.0); MEAN CORPUSCULAR HGB CONC 30.8 g/dL (32.0-36.0); MEAN CORPUSCULAR VOLUME 97.5 fL (79-99); MONOCYTES % (AUTO) 1.3 % (3.0-13.0); NEUTROPHILS % (AUTO) 93.3 % (40.0-77.0); NUCLEATED RED BLOOD CELLS 0.9 % (0.0-0.19); PLATELET COUNT (AUTO) 183 K/uL (130-400); RED CELL DISTRIBUTION WIDTH 15.8 % (11.0-15.5); WHITE BLOOD COUNT (AUTO) 26.1 K/uL (4.8-10.8)
[2021-05-11 11:07] LABS: ABG BASE EXCESS -5.5 mmol/L (-2.0-3.0); ABG HCO3 20.1 mmol/L (21.0-28.0); ABG OXYGEN SATURATION 97.8 % (95.0-99.0); ABG PCO2 40 mmHg (32-45)
[2021-05-11] MEDS ORDERED: DEXTROSE 50%-WATER 50 ML DISP.SYRIN IV ONE (11:30)
[2021-05-11 11:55] LABS: ABG BASE EXCESS -7.7 mmol/L (-2.0-3.0); ABG HCO3 18.4 mmol/L (21.0-28.0); ABG OXYGEN SATURATION 98.1 % (95.0-99.0); ABG PCO2 40 mmHg (32-45)
[2021-05-11] MEDS ORDERED: ALBUMIN (HUMAN) 5% 250 ML IV ONE ×2 (12:20→12:28)
[2021-05-11] MEDS ORDERED: 0.9% NACL 250ML 250 ML ONE (13:57)
[2021-05-11] MEDS ORDERED: PHENYLEPHRINE HCL 10 MG/ML 1ML VIAL IV ONE ×2 (13:58→14:05)
[2021-05-11] MEDS ORDERED: PROPOFOL 1000 MG/100 ML 100 ML IV ONE (14:52)
[2021-05-11 15:01] LABS: HEMATOCRIT 34.2 % (36-48); MEAN CORPUSCULAR HEMOGLOBIN 29.8 pg (27.0-33.0); MEAN CORPUSCULAR HGB CONC 33.3 g/dL (32.0-36.0); MEAN CORPUSCULAR VOLUME 89.5 fL (79-99); NUCLEATED RED BLOOD CELLS 1.8 % (0.0-0.19); RED BLOOD CELL COUNT(AUTO) 3.82 MIL/uL (4.00-5.50); WHITE BLOOD COUNT (AUTO) 12.5 K/uL (4.8-10.8)
[2021-05-11 15:14] LABS: CREATININE 3.2 mg/dL (0.5-1.5); POTASSIUM 3.8 mmol/L (3.5-5.1)
[2021-05-11] MEDS ORDERED: PHARMACY COMMUNICATION MISC SCH (17:00)
[2021-05-11] MEDS ORDERED: MIDAZOLAM 100MG-0.9% NS 100ML 100ML BAG IV ONE (17:00)
[2021-05-11] MEDS ORDERED: FENTANYL CITRATE PF 0.05 MG/ML 1,000 MCG in 0.9%NACL 100ML 100 ML IVPB SCH (17:00)
[2021-05-11] MEDS ORDERED: MIDAZOLAM 100MG-0.9% NS 100ML 100 ML IV SCH (17:00)
[2021-05-11] MEDS ORDERED: NOREPINEPHRINE BITARTRATE 8 MG in 0.9% NACL 250ML 250 ML IV SCH (17:00)
[2021-05-11] MEDS ORDERED: PHENYLEPHRINE HCL 100 MG in 0.9% NACL 250ML 250 ML IV SCH (17:00)
[2021-05-11] MEDS ORDERED: IPRATROPIUM/ALBUTEROL SULFATE 3 ML SOLUTION IH PRN (17:30)
[2021-05-11] MEDS ORDERED: [UNRECOGNIZED DRUG - NUTRITION] IV ONE (18:00)
[2021-05-11] MEDS: PROPOFOL 1000 MG/100 ML 100 ML IV SCH ×2 (18:45→23:21)
[2021-05-11] MEDS ORDERED: SODIUM BICARB 50MEQ 50ML VIAL 150 ML ONE (19:31)
[2021-05-11 19:37] LABS: ABG BASE EXCESS -10.3 mmol/L (-2.0-3.0); ABG HCO3 17.7 mmol/L (21.0-28.0); ABG OXYGEN SATURATION 97.9 % (95.0-99.0); ABG PCO2 47 mmHg (32-45)
[2021-05-11] MEDS ORDERED: ALBUMIN (HUMAN) 5% 250 ML IV SCH (20:00)
[2021-05-11] MEDS ORDERED: SODIUM BICARB 50MEQ 50ML VIAL IV ONE (20:00)
[2021-05-11] MEDS: SODIUM BICARB 8.4% 50ML SYRING 150 MEQ in DEXTROSE 5%-WATER 1,000 ML IVP SCH (20:01)
[2021-05-11 22:27] LABS: ABG BASE EXCESS -7.6 mmol/L (-2.0-3.0); ABG HCO3 18.4 mmol/L (21.0-28.0); ABG OXYGEN SATURATION 97.8 % (95.0-99.0); ABG PCO2 39 mmHg (32-45)
[2021-05-12] VITALS (54 sets, daily range): BP systolic 96–133; BP diastolic 45–67
[2021-05-12] MEDS: PHENYLEPHRINE HCL 100 MG in 0.9% NACL 250ML 240 ML IV PRN ×3 (00:48→16:36)
[2021-05-12] MEDS: FENTANYL 2500MCG+NS 250ML 250 ML IV SCH ×2 (01:14→17:54)
[2021-05-12] MEDS: CEFEPIME HCL 2 GM VIAL IVP SCH ×2 (01:59→10:42)
[2021-05-12 02:49] LABS: ABG BASE EXCESS -3.8 mmol/L (-2.0-3.0); ABG HCO3 19.6 mmol/L (21.0-28.0); ABG OXYGEN SATURATION 97.7 % (95.0-99.0); ABG PCO2 30 mmHg (32-45)
[2021-05-12] MEDS: PROPOFOL 1000 MG/100 ML 100 ML IV SCH ×4 (03:30→16:34)
[2021-05-12] MEDS: SODIUM BICARB 8.4% 50ML SYRING 150 MEQ in DEXTROSE 5%-WATER 1,000 ML IVP SCH ×2 (03:31→11:20)
[2021-05-12] MEDS: INSULIN HUMULIN R 100 UNIT/ML 3ML SQ SCH ×4 (05:00→18:00)
[2021-05-12] MEDS: IPRATROPIUM/ALBUTEROL SULFATE 3 ML SOLUTION IH SCH ×4 (06:17→23:31)
[2021-05-12 06:27] LABS: BASOPHILS % (AUTO) 0.6 % (0.0-5.0); EOSINOPHILS % (AUTO) 0.3 % (0.0-8.0); HEMATOCRIT 29.3 % (36-48); MEAN CORPUSCULAR HEMOGLOBIN 29.6 pg (27.0-33.0); MEAN CORPUSCULAR HGB CONC 33.8 g/dL (32.0-36.0); MEAN CORPUSCULAR VOLUME 87.5 fL (79-99); MONOCYTES % (AUTO) 1.2 % (3.0-13.0); NEUTROPHILS % (AUTO) 91.4 % (40.0-77.0); PLATELET COUNT (AUTO) 48 K/uL (130-400); RED BLOOD CELL COUNT(AUTO) 3.35 MIL/uL (4.00-5.50); RED CELL DISTRIBUTION WIDTH 16.8 % (11.0-15.5); WHITE BLOOD COUNT (AUTO) 15.5 K/uL (4.8-10.8)
[2021-05-12 06:38] LABS: ALBUMIN 1.9 g/dL (3.5-5.0); BILIRUBIN,TOTAL 4.4 mg/dL (0.2-1.0); CREATININE 3.5 mg/dL (0.5-1.5); MAGNESIUM 3.1 mg/dL (1.80-2.40); PHOSPHORUS 4.6 mg/dL (2.5-4.9); POTASSIUM 3.8 mmol/L (3.5-5.1); TOTAL PROTEIN, SERUM 4.1 g/dL (6.0-8.3)
[2021-05-12 07:07] LABS: ABG BASE EXCESS -0.5 mmol/L (-2.0-3.0); ABG HCO3 24.3 mmol/L (21.0-28.0); ABG OXYGEN SATURATION 97.9 % (95.0-99.0); ABG PCO2 41 mmHg (32-45)
[2021-05-12 07:47] LABS: PLATELET MORPHOLOGY COMMENT MARKED DECREASE
[2021-05-12] MEDS: CHLORHEXIDINE GLUCONATE 473 ML MOUTHWASH MM SCH ×3 (08:30→20:19)
[2021-05-12] MEDS: FLUCONAZOLE 400 MG/NS 200 ML 200 ML IV SCH (08:30)
[2021-05-12] MEDS: PANTOPRAZOLE 40 MG/VIAL IVP SCH ×2 (08:30→20:21)
[2021-05-12 10:13] LABS: ABG BASE EXCESS -0.7 mmol/L (-2.0-3.0); ABG HCO3 24.3 mmol/L (21.0-28.0); ABG OXYGEN SATURATION 96.9 % (95.0-99.0); ABG PCO2 41 mmHg (32-45)
[2021-05-12] MEDS: LINEZOLID 600 MG/ISO-OSM 300 ML IV SCH (10:43)
[2021-05-12] MEDS: FAT EMULSIONS 20% 250ML 250 ML IV SCH (10:43)
[2021-05-12] MEDS ORDERED: RENAL DOSE IV PRN (12:00)
[2021-05-12] MEDS: ACETAMINOPHEN 325 MG TAB PO PRN (13:13)
[2021-05-12] MEDS: ACETAMINOPHEN 650 MG SUPPOSITORY RC PRN (13:28)
[2021-05-12] MEDS ORDERED: ARTIFICIAL TEARS 3.5 GM OINTMENT OU ONE (13:40)
[2021-05-12] MEDS ORDERED: ALBUMIN (HUMAN) 25% 100 ML IV PRN (14:00)
[2021-05-12] MEDS ORDERED: ALBUMIN (HUMAN) 5% 250 ML IV SCH (14:30)
[2021-05-12 14:31] LABS: ABG HCO3 25.7 mmol/L (21.0-28.0); ABG OXYGEN SATURATION 96.1 % (95.0-99.0); ABG PCO2 42 mmHg (32-45)
[2021-05-12] MEDS ORDERED: SODIUM BICARB 8.4% 50ML SYRINGE ONE (15:45)
[2021-05-12] MEDS: DEXTROSE 5%-WATER 1,000 ML IV SCH (16:35)
[2021-05-12] MEDS ORDERED: ROCURONIUM 10MG/1ML SYR 10 MG/ML ML ONE ×2 (17:22→18:05)
[2021-05-12] MEDS ORDERED: CEFAZOLIN SODIUM 1 GM VIAL ONE (17:32)
[2021-05-12] MEDS ORDERED: KETAMINE 50MG/ML SYRINGE 50 MG/ML DISP.SYRIN IV ONE (17:36)
[2021-05-12] MEDS ORDERED: [UNRECOGNIZED DRUG - NUTRITION] IV ONE (18:30)
[2021-05-12] MEDS ORDERED: ALBUMIN (HUMAN) 5% 250 ML IV ONE (18:31)
[2021-05-12] MEDS ORDERED: ESMOLOL HCL 10 MG/ML 10 ML VIAL ONE (18:41)
[2021-05-12] MEDS ORDERED: [UNRECOGNIZED DRUG - NUTRITION] IV ONE (19:00)
[2021-05-12] MEDS ORDERED: NOREPINEPHRINE 8MG/NS 250 ML 250 ML IV ONE (19:25)
[2021-05-12] MEDS: ARTIFICIAL TEARS 3.5 GM OINTMENT OU SCH (20:19)
[2021-05-12 23:26] LABS: ABG BASE EXCESS 0.9 mmol/L (-2.0-3.0); ABG HCO3 25.8 mmol/L (21.0-28.0); ABG OXYGEN SATURATION 96.8 % (95.0-99.0); ABG PCO2 42 mmHg (32-45)
[2021-05-13] VITALS (62 sets, daily range): BP systolic 100–159; BP diastolic 40–71
[2021-05-13] MEDS: NOREPINEPHRINE BITARTRATE 8 MG in DEXTROSE 5%-WATER 250 ML IV PRN (01:07)
[2021-05-13] MEDS ORDERED: NOREPINEPHRINE 8MG/NS 250 ML 250 ML IV ONE ×2 (01:19→01:20)
[2021-05-13] MEDS: LINEZOLID 600 MG/ISO-OSM 300 ML IV SCH ×2 (01:21→10:21)
[2021-05-13] MEDS ORDERED: ALBUMIN (HUMAN) 25% 100 ML IV ONE (02:14)
[2021-05-13] MEDS ORDERED: ALBUMIN (HUMAN) 25% 100 ML IV SCH (02:30)
[2021-05-13] MEDS ORDERED: VASOPRESSIN 20 UNITS/ML 1ML VIAL ONE (02:36)
[2021-05-13] MEDS ORDERED: 0.9%NACL 100ML 100 ML ONE ×2 (02:38→13:13)
[2021-05-13 03:37] LABS: MEAN CORPUSCULAR HEMOGLOBIN 31.1 pg (27.0-33.0); MEAN CORPUSCULAR HGB CONC 32.9 g/dL (32.0-36.0); MEAN CORPUSCULAR VOLUME 94.7 fL (79-99); NUCLEATED RED BLOOD CELLS 0.5 % (0.0-0.19); PLATELET COUNT (AUTO) 64 K/uL (130-400); RED BLOOD CELL COUNT(AUTO) 1.51 MIL/uL (4.00-5.50); RED CELL DISTRIBUTION WIDTH 17.7 % (11.0-15.5); WHITE BLOOD COUNT (AUTO) 23.5 K/uL (4.8-10.8)
[2021-05-13 03:42] LABS: ABG BASE EXCESS -5.8 mmol/L (-2.0-3.0); ABG HCO3 20.2 mmol/L (21.0-28.0); ABG PCO2 43 mmHg (32-45)
[2021-05-13 03:51] LABS: ALBUMIN 1.9 g/dL (3.5-5.0); BILIRUBIN,TOTAL 4.2 mg/dL (0.2-1.0); CREATININE 3.8 mg/dL (0.5-1.5); MAGNESIUM 2.8 mg/dL (1.80-2.40); POTASSIUM 4.4 mmol/L (3.5-5.1); TOTAL PROTEIN, SERUM 3.6 g/dL (6.0-8.3)
[2021-05-13] MEDS: SODIUM BICARB 8.4% 50ML SYRING 150 MEQ in DEXTROSE 5%-WATER 1,000 ML IVP SCH ×2 (03:53→20:08)
[2021-05-13 04:05] LABS: HEMATOCRIT 14.3 % (36-48)
[2021-05-13] MEDS: PROPOFOL 1000 MG/100 ML 100 ML IV SCH ×6 (04:40→23:51)
[2021-05-13] MEDS ORDERED: SODIUM BICARB 8.4% 50ML SYRINGE IVP STA (05:05)
[2021-05-13 05:09] LABS: BAND NEUTROPHILS % (MANUAL) 1 % (0-2); LYMPHOCYTES % (MANUAL) 5 % (22-44); MAN.DIFF COMMENT-IMPRESSION MANUAL DIFFERENTIAL; PLATELET MORPHOLOGY COMMENT DECREASED; SEGMENTED NEUTROPHILS % 94 % (40-70)
[2021-05-13 05:27] LABS: MEAN CORPUSCULAR HEMOGLOBIN 30.6 pg (27.0-33.0); MEAN CORPUSCULAR HGB CONC 32.1 g/dL (32.0-36.0); MEAN CORPUSCULAR VOLUME 95.2 fL (79-99); NUCLEATED RED BLOOD CELLS 0.6 % (0.0-0.19); PLATELET COUNT (AUTO) 67 K/uL (130-400); RED BLOOD CELL COUNT(AUTO) 1.47 MIL/uL (4.00-5.50); RED CELL DISTRIBUTION WIDTH 17.8 % (11.0-15.5); WHITE BLOOD COUNT (AUTO) 24.6 K/uL (4.8-10.8)
[2021-05-13] MEDS: INSULIN HUMULIN R 100 UNIT/ML 3ML SQ SCH ×5 (06:00→23:54)
[2021-05-13] MEDS ORDERED: SODIUM BICARB 50MEQ 50ML VIAL 50 ML ONE ×2 (06:06→07:07)
[2021-05-13 06:42] LABS: LYMPHOCYTES % (MANUAL) 5 % (22-44); MAN.DIFF COMMENT-IMPRESSION MANUAL DIFFERENTIAL; SEGMENTED NEUTROPHILS % 95 % (40-70)
[2021-05-13 06:43] LABS: PLATELET MORPHOLOGY COMMENT DECREASED
[2021-05-13] MEDS: IPRATROPIUM/ALBUTEROL SULFATE 3 ML SOLUTION IH SCH ×3 (06:46→18:34)
[2021-05-13] MEDS ORDERED: COMPOUND IV MISC 1 EACH IVSOLN MISC PRN (07:30)
[2021-05-13] MEDS: PANTOPRAZOLE 40 MG/VIAL IVP SCH ×2 (08:13→19:59)
[2021-05-13] MEDS: IRON SUCROSE COMPLEX 100 MG in 0.9%NACL 50ML 50 ML IV SCH (08:13)
[2021-05-13] MEDS: CHLORHEXIDINE GLUCONATE 473 ML MOUTHWASH MM SCH ×3 (08:13→20:17)
[2021-05-13] MEDS: FLUCONAZOLE 400 MG/NS 200 ML 200 ML IV SCH (08:13)
[2021-05-13] MEDS: ARTIFICIAL TEARS 3.5 GM OINTMENT OU SCH ×2 (08:14→20:17)
[2021-05-13] MEDS: FENTANYL 2500MCG+NS 250ML 250 ML IV SCH ×2 (08:15→16:56)
[2021-05-13] MEDS ORDERED: 0.9% NACL 500ML IV.SOLN 1,000 ML IV ONE (09:32)
[2021-05-13] MEDS: PHENYLEPHRINE HCL 100 MG in 0.9% NACL 250ML 240 ML IV PRN ×2 (10:23→16:51)
[2021-05-13] MEDS: EPINEPHRINE PF 1MG AMP 10 MG in 0.9% NACL 250ML 250 ML IV SCH (10:25)
[2021-05-13] MEDS: VASOPRESSIN 20 UNITS in 0.9%NACL 100ML 100 ML IV SCH ×2 (10:25→18:17)
[2021-05-13] MEDS: NOREPINEPHRINE BITARTRATE 32 MG in 0.9% NACL 250ML 250 ML IV SCH (10:33)
[2021-05-13 11:34] LABS: BASOPHILS % (AUTO) 0.4 % (0.0-5.0); EOSINOPHILS % (AUTO) 0.3 % (0.0-8.0); HEMATOCRIT 28.8 % (36-48); LYMPHOCYTES % (AUTO) 7.3 % (21.0-51.0); MEAN CORPUSCULAR HEMOGLOBIN 29.8 pg (27.0-33.0); MEAN CORPUSCULAR HGB CONC 33.3 g/dL (32.0-36.0); MEAN CORPUSCULAR VOLUME 89.4 fL (79-99); MONOCYTES % (AUTO) 2.2 % (3.0-13.0); NEUTROPHILS % (AUTO) 87.1 % (40.0-77.0); NUCLEATED RED BLOOD CELLS 0.5 % (0.0-0.19); PLATELET COUNT (AUTO) 91 K/uL (130-400); RED BLOOD CELL COUNT(AUTO) 3.22 MIL/uL (4.00-5.50); RED CELL DISTRIBUTION WIDTH 15.1 % (11.0-15.5); WHITE BLOOD COUNT (AUTO) 15.3 K/uL (4.8-10.8)
[2021-05-13 12:08] LABS: INR 1.3 (0.85-1.15); PROTHROMBIN TIME 13.8 SEC (9.6-11.6)
[2021-05-13] MEDS: 0.9%NACL 1000ML 1,000 ML IV SCH ×2 (12:30→20:12)
[2021-05-13] MEDS: DEXTROSE 5%-WATER 1,000 ML IV SCH (12:30)
[2021-05-13] MEDS: CEFEPIME HCL 2 GM VIAL IVP SCH (12:30)
[2021-05-13] MEDS ORDERED: CALCIUM GLUC 1GM/10ML VIAL IV ONE (13:13)
[2021-05-13] MEDS: CALCIUM GLUC 1GM 1 GM in 0.9%NACL 100ML 100 ML IV SCH (13:15)
[2021-05-13 13:18] LABS: PARTIAL THROMBOPLASTIN TIME 33.5 SEC (26.3-35.5)
[2021-05-13 16:26] LABS: HEMATOCRIT 27.9 % (36-48); MEAN CORPUSCULAR HGB CONC 34.1 g/dL (32.0-36.0); NUCLEATED RED BLOOD CELLS 0.3 % (0.0-0.19); RED BLOOD CELL COUNT(AUTO) 3.17 MIL/uL (4.00-5.50); RED CELL DISTRIBUTION WIDTH 15.8 % (11.0-15.5); WHITE BLOOD COUNT (AUTO) 17.3 K/uL (4.8-10.8)
[2021-05-13] MEDS: [UNRECOGNIZED DRUG - NUTRITION] IV SCH (16:43)
[2021-05-13 17:44] LABS: HEMATOCRIT 27.9 % (36-48)
[2021-05-13] MEDS ORDERED: LACTATED RINGERS 1000ML IV SCH (19:30)
[2021-05-13 19:43] LABS: ABG BASE EXCESS -4.7 mmol/L (-2.0-3.0); ABG HCO3 21.8 mmol/L (21.0-28.0); ABG OXYGEN SATURATION 93.9 % (95.0-99.0); ABG PCO2 47 mmHg (32-45)
[2021-05-13] MEDS: LACTATED RINGERS 1000ML IV SCH ×2 (19:59→20:09)
[2021-05-14] VITALS (89 sets, daily range): BP systolic 10–140; BP diastolic 42–59
[2021-05-14 00:09] LABS: HEMATOCRIT 27.9 % (36-48)
[2021-05-14] MEDS: IPRATROPIUM/ALBUTEROL SULFATE 3 ML SOLUTION IH SCH ×5 (00:23→23:00)
[2021-05-14] MEDS ORDERED: VASOPRESSIN 20 UNITS/ML 1ML VIAL ONE (02:29)
[2021-05-14] MEDS ORDERED: 0.9%NACL 100ML 100 ML ONE (02:31)
[2021-05-14] MEDS: EPINEPHRINE PF 1MG AMP 10 MG in 0.9% NACL 250ML 250 ML IV SCH (02:52)
[2021-05-14] MEDS: PROPOFOL 1000 MG/100 ML 100 ML IV SCH ×5 (02:56→18:21)
[2021-05-14] MEDS: FENTANYL 2500MCG+NS 250ML 250 ML IV SCH ×2 (05:59→16:20)
[2021-05-14] MEDS: INSULIN HUMULIN R 100 UNIT/ML 3ML SQ SCH ×3 (06:00→18:00)
[2021-05-14 06:39] LABS: HEMATOCRIT 27.3 % (36-48)
[2021-05-14 08:10] LABS: INR 1.4 (0.85-1.15); PROTHROMBIN TIME 14.8 SEC (9.6-11.6)
[2021-05-14] MEDS: PANTOPRAZOLE 40 MG/VIAL IVP SCH ×2 (08:20→20:34)
[2021-05-14] MEDS: 0.9%NACL 1000ML 1,000 ML IV SCH ×2 (08:20→18:17)
[2021-05-14] MEDS: FLUCONAZOLE 400 MG/NS 200 ML 200 ML IV SCH (08:20)
[2021-05-14] MEDS: CHLORHEXIDINE GLUCONATE 473 ML MOUTHWASH MM SCH ×3 (08:21→20:32)
[2021-05-14] MEDS: ARTIFICIAL TEARS 3.5 GM OINTMENT OU SCH ×2 (08:22→20:37)
[2021-05-14 08:31] LABS: PARTIAL THROMBOPLASTIN TIME 37.3 SEC (26.3-35.5)
[2021-05-14] MEDS: IRON SUCROSE COMPLEX 100 MG in 0.9%NACL 50ML 50 ML IV SCH (09:27)
[2021-05-14 12:03] LABS: HEMATOCRIT 27.6 % (36-48)
[2021-05-14] MEDS: SODIUM BICARB 8.4% 50ML SYRING 150 MEQ in DEXTROSE 5%-WATER 1,000 ML IVP SCH ×2 (12:28→23:11)
[2021-05-14] MEDS: CEFEPIME HCL 2 GM VIAL IVP SCH (12:55)
[2021-05-14] MEDS: [UNRECOGNIZED DRUG - NUTRITION] IV SCH (13:00)
[2021-05-14] MEDS: VASOPRESSIN 20 UNITS in 0.9%NACL 100ML 100 ML IV SCH ×3 (13:10→21:23)
[2021-05-14 13:12] LABS: ABG BASE EXCESS -5.9 mmol/L (-2.0-3.0); ABG HCO3 22.2 mmol/L (21.0-28.0); ABG OXYGEN SATURATION 80.1 % (95.0-99.0); ABG PCO2 58 mmHg (32-45)
[2021-05-14 13:26] LABS: BASOPHILS % (AUTO) 0.4 % (0.0-5.0); EOSINOPHILS % (AUTO) 0.3 % (0.0-8.0); LYMPHOCYTES % (AUTO) 4.3 % (21.0-51.0); MEAN CORPUSCULAR HEMOGLOBIN 30.6 pg (27.0-33.0); MEAN CORPUSCULAR HGB CONC 33.3 g/dL (32.0-36.0); MEAN CORPUSCULAR VOLUME 91.7 fL (79-99); MONOCYTES % (AUTO) 1.7 % (3.0-13.0); NEUTROPHILS % (AUTO) 89.3 % (40.0-77.0); NUCLEATED RED BLOOD CELLS 0.5 % (0.0-0.19); PLATELET COUNT (AUTO) 33 K/uL (130-400); RED BLOOD CELL COUNT(AUTO) 3.01 MIL/uL (4.00-5.50); RED CELL DISTRIBUTION WIDTH 16.6 % (11.0-15.5); WHITE BLOOD COUNT (AUTO) 19.6 K/uL (4.8-10.8)
[2021-05-14] MEDS ORDERED: FUROSEMIDE 40MG VIAL IV SCH (13:30)
[2021-05-14] MEDS ORDERED: VANCOMYCIN PROTOCOL PER PHARMACY IV SCH (13:30)
[2021-05-14 13:32] LABS: ALBUMIN 1.4 g/dL (3.5-5.0); BILIRUBIN,TOTAL 5.7 mg/dL (0.2-1.0); MAGNESIUM 2.6 mg/dL (1.80-2.40); PHOSPHORUS 8.2 mg/dL (2.5-4.9); POTASSIUM 5.4 mmol/L (3.5-5.1); TOTAL PROTEIN, SERUM 4.4 g/dL (6.0-8.3)
[2021-05-14] MEDS ORDERED: 0.9% NACL 250ML 250 ML IV SCH (14:00)
[2021-05-14] MEDS ORDERED: VANCOMYCIN KIT 1 GM/250 ML IV.KIT IV SCH (14:00)
[2021-05-14 14:32] LABS: ABG BASE EXCESS -4.4 mmol/L (-2.0-3.0); ABG OXYGEN SATURATION 89.1 % (95.0-99.0); ABG PCO2 54 mmHg (32-45)
[2021-05-14] MEDS ORDERED: [UNRECOGNIZED DRUG - NUTRITION] IV SCH (15:30)
[2021-05-14 18:02] LABS: HEMATOCRIT 22.2 % (36-48)
[2021-05-14] MEDS: FUROSEMIDE 100MG VIAL IVP SCH (18:38)
[2021-05-14] MEDS: PHENYLEPHRINE HCL 100 MG in 0.9% NACL 250ML 240 ML IV PRN (19:12)
[2021-05-14] MEDS: METRONIDAZOLE 500MG/100ML BAG 100 ML IVPB SCH (21:21)
[2021-05-14 22:55] LABS: ABG BASE EXCESS -5.1 mmol/L (-2.0-3.0); ABG HCO3 21.8 mmol/L (21.0-28.0); ABG OXYGEN SATURATION 94.3 % (95.0-99.0); ABG PCO2 49 mmHg (32-45)
[2021-05-15] VITALS (54 sets, daily range): BP systolic 88–127; BP diastolic 43–55
[2021-05-15] MEDS: PROPOFOL 1000 MG/100 ML 100 ML IV SCH ×4 (00:31→21:39)
[2021-05-15] MEDS: FENTANYL 2500MCG+NS 250ML 250 ML IV SCH ×3 (02:06→21:39)
[2021-05-15] MEDS: 0.9%NACL 1000ML 1,000 ML IV SCH ×3 (03:44→23:01)
[2021-05-15] MEDS ORDERED: 0.9% NACL 500ML IV.SOLN 500 ML IV ONE (03:46)
[2021-05-15] MEDS: METRONIDAZOLE 500MG/100ML BAG 100 ML IVPB SCH ×3 (05:05→21:38)
[2021-05-15] MEDS: INSULIN HUMULIN R 100 UNIT/ML 3ML SQ SCH ×4 (06:00→17:45)
[2021-05-15] MEDS ORDERED: VANCOMYCIN 500MG+NS 100ML IVPB IV SCH ×2 (06:00→09:00)
[2021-05-15] MEDS ORDERED: 0.9%NACL 100ML 100 ML IV SCH ×2 (06:00→09:00)
[2021-05-15] MEDS: PHENYLEPHRINE HCL 100 MG in 0.9% NACL 250ML 240 ML IV PRN ×3 (06:26→16:08)
[2021-05-15 06:35] LABS: CREATININE 4.1 mg/dL (0.5-1.5); PHOSPHORUS 8.7 mg/dL (2.5-4.9)
[2021-05-15] MEDS: IPRATROPIUM/ALBUTEROL SULFATE 3 ML SOLUTION IH SCH ×3 (06:45→18:30)
[2021-05-15] MEDS: VASOPRESSIN 20 UNITS in 0.9%NACL 100ML 100 ML IV SCH ×2 (06:59→12:41)
[2021-05-15] MEDS: EPINEPHRINE PF 1MG AMP 10 MG in 0.9% NACL 250ML 250 ML IV SCH (07:41)
[2021-05-15 07:46] LABS: HEMATOCRIT 25.7 % (36-48); MEAN CORPUSCULAR HEMOGLOBIN 29.1 pg (27.0-33.0); MEAN CORPUSCULAR HGB CONC 32.3 g/dL (32.0-36.0); MEAN CORPUSCULAR VOLUME 90.2 fL (79-99); NUCLEATED RED BLOOD CELLS 0.3 % (0.0-0.19); RED BLOOD CELL COUNT(AUTO) 2.85 MIL/uL (4.00-5.50); RED CELL DISTRIBUTION WIDTH 16.3 % (11.0-15.5); WHITE BLOOD COUNT (AUTO) 14.4 K/uL (4.8-10.8)
[2021-05-15 07:51] LABS: INR 1.41 (0.85-1.15); PROTHROMBIN TIME 14.9 SEC (9.6-11.6)
[2021-05-15] MEDS ORDERED: ALBUTEROL 0.083% 2.5 MG/3 ML INH IH SCH (08:00)
[2021-05-15] MEDS ORDERED: INSULIN HUMULIN R 100 UNIT/ML 3ML SQ ONE (08:00)
[2021-05-15] MEDS ORDERED: SODIUM BICARB 50MEQ 50ML VIAL IV SCH (08:00)
[2021-05-15] MEDS ORDERED: DEXTROSE 50%-WATER 50 ML DISP.SYRIN IV SCH (08:00)
[2021-05-15] MEDS ORDERED: CALCIUM GLUC 1GM 1 GM in 0.9%NACL 100ML 100 ML IV SCH ×2 (08:00→17:30)
[2021-05-15] MEDS: PANTOPRAZOLE 40 MG/VIAL IVP SCH ×2 (08:17→20:05)
[2021-05-15] MEDS: FLUCONAZOLE 400 MG/NS 200 ML 200 ML IV SCH (08:17)
[2021-05-15] MEDS: CALCIUM GLUC 1GM 1 GM in 0.9%NACL 100ML 100 ML IV SCH ×2 (08:17→18:05)
[2021-05-15] MEDS: IRON SUCROSE COMPLEX 100 MG in 0.9%NACL 50ML 50 ML IV SCH (08:17)
[2021-05-15] MEDS: ARTIFICIAL TEARS 3.5 GM OINTMENT OU SCH ×2 (08:18→20:06)
[2021-05-15] MEDS: CHLORHEXIDINE GLUCONATE 473 ML MOUTHWASH MM SCH ×3 (08:18→20:06)
[2021-05-15] MEDS: SODIUM BICARB 8.4% 50ML SYRING 150 MEQ in DEXTROSE 5%-WATER 1,000 ML IVP SCH ×3 (08:20→21:38)
[2021-05-15] MEDS: FUROSEMIDE 100MG VIAL IVP SCH ×2 (08:20→20:06)
[2021-05-15] MEDS: FAT EMULSIONS 20% 250ML 250 ML IV SCH (09:24)
[2021-05-15] MEDS: ALBUTEROL 0.083% 2.5 MG/3 ML INH IH SCH ×4 (10:00→22:00)
[2021-05-15] MEDS: CEFEPIME HCL 2 GM VIAL IVP SCH (11:21)
[2021-05-15] MEDS: MEROPENEM 1 GM VIAL IVP SCH (12:41)
[2021-05-15 16:25] LABS: ABG HCO3 21.1 mmol/L (21.0-28.0); ABG PCO2 49 mmHg (32-45)
[2021-05-15] MEDS ORDERED: SODIUM BICARB 50MEQ 50ML VIAL IV ONE (18:30)
[2021-05-15] MEDS ORDERED: INSULIN HUMULIN R 100 UNIT/ML 3ML IV ONE (18:30)
[2021-05-15] MEDS ORDERED: DEXTROSE 50%-WATER 50 ML DISP.SYRIN IV ONE (18:30)
[2021-05-15] MEDS ORDERED: PHARMACY COMMUNICATION MISC SCH (21:30)
[2021-05-15] MEDS ORDERED: CLINIMIX-E4.25%AA/D5+LYT2000ML 2,000 ML IV ONE (21:30)
[2021-05-16] VITALS (10 sets, daily range): BP systolic 0–103; BP diastolic 0–69
[2021-05-16] MEDS: INSULIN HUMULIN R 100 UNIT/ML 3ML SQ SCH
[2021-05-16 00:11] LABS: ABG BASE EXCESS -5.2 mmol/L (-2.0-3.0); ABG HCO3 22.6 mmol/L (21.0-28.0); ABG OXYGEN SATURATION 88.1 % (95.0-99.0); ABG PCO2 55 mmHg (32-45)
[2021-05-16] MEDS: MEROPENEM 1 GM VIAL IVP SCH (00:46)
[2021-05-16] MEDS ORDERED: DEXTROSE 50%-WATER 50 ML DISP.SYRIN IV ONE ×2 (01:00→01:02)
[2021-05-16] MEDS ORDERED: INSULIN HUMULIN R 100 UNIT/ML 3ML SQ ONE (01:00)
[2021-05-16] MEDS ORDERED: CALCIUM GLUC 1GM 1 GM in 0.9%NACL 100ML 100 ML IV SCH (01:00)
[2021-05-16] MEDS ORDERED: CALCIUM GLUC 1GM/10ML VIAL IV ONE (01:02)
[2021-05-16] MEDS: IPRATROPIUM/ALBUTEROL SULFATE 3 ML SOLUTION IH SCH ×2 (01:35)
[2021-05-16] MEDS: ALBUTEROL 0.083% 2.5 MG/3 ML INH IH SCH (02:10)
[2021-05-16] MEDS: EPINEPHRINE PF 1MG AMP 10 MG in 0.9% NACL 250ML 250 ML IV SCH (02:11)
[2021-05-16] MEDS ORDERED: DEXTROSE 50%-WATER 50 ML DISP.SYRIN IV PRN (02:30)
[2021-05-16] MEDS ORDERED: DEXTROSE 10%-WATER 1,000 ML IV ONE (02:31)
[2021-05-16] MEDS ORDERED: NACL 23.4% (4MEQ/ML) 30ML VIAL 154 MEQ in DEXTROSE 10%-WATER 961.5 ML IV PRN (03:00)
[2021-05-16 03:30] LABS: CREATININE 4.8 mg/dL (0.5-1.5); MAGNESIUM 2.7 mg/dL (1.80-2.40)
[2021-05-16 03:32] LABS: POTASSIUM 7.2 mmol/L (3.5-5.1)
[2021-05-16 03:33] LABS: BASOPHILS % (AUTO) 0.4 % (0.0-5.0); EOSINOPHILS % (AUTO) 0.6 % (0.0-8.0); HEMATOCRIT 32.3 % (36-48); MEAN CORPUSCULAR HEMOGLOBIN 30.7 pg (27.0-33.0); MEAN CORPUSCULAR HGB CONC 32.2 g/dL (32.0-36.0); MEAN CORPUSCULAR VOLUME 95.3 fL (79-99); MONOCYTES % (AUTO) 2.7 % (3.0-13.0); NEUTROPHILS % (AUTO) 84.2 % (40.0-77.0); NUCLEATED RED BLOOD CELLS 0.6 % (0.0-0.19); RED BLOOD CELL COUNT(AUTO) 3.39 MIL/uL (4.00-5.50); RED CELL DISTRIBUTION WIDTH 16.6 % (11.0-15.5); WHITE BLOOD COUNT (AUTO) 16.1 K/uL (4.8-10.8)
[2021-05-16 03:43] LABS: INR 1.6 (0.85-1.15); PROTHROMBIN TIME 16.7 SEC (9.6-11.6)
[2021-05-16 03:45] LABS: PARTIAL THROMBOPLASTIN TIME 59.8 SEC (26.3-35.5)
[2021-05-16 03:50] LABS: ALBUMIN 1.1 g/dL (3.5-5.0); BILIRUBIN,TOTAL 7.5 mg/dL (0.2-1.0); TOTAL PROTEIN, SERUM 4.4 g/dL (6.0-8.3)
[2021-05-16 03:55] LABS: PLATELET COUNT (AUTO) 8 K/uL (130-400)
[2021-05-16] MEDS: PHENYLEPHRINE HCL 100 MG in 0.9% NACL 250ML 240 ML IV PRN (04:07)
[2021-05-16] MEDS: NOREPINEPHRINE BITARTRATE 32 MG in 0.9% NACL 250ML 250 ML IV SCH (04:17)
[2021-05-16] MEDS: VASOPRESSIN 20 UNITS in 0.9%NACL 100ML 100 ML IV SCH (04:17)
[2021-05-16] MEDS ORDERED: FONDAPARINUX SODIUM 2.5 MG/0.5 ML SQ SCH (09:00)
== END 2021-05-16 04:28 | DRG 853 ==
LOC: EDH 09:33 → EDHIP 16:53 → OBSVTOIN 16:53 → 3DH 04-28 02:10 → 4CH 05-01 14:15 → 2CH 05-06 09:06 → 2DH 05-08 14:50
PROVIDERS: ADMIT Family Medicine; ATTEND Family Medicine
PROC: 5A12012 Performance of Cardiac Output, Single, Manual (ICD-10-PCS; principal; 2021-04-27)
PROC: 5A1955Z Respiratory Ventilation, Greater than 96 Consecutive Hours (ICD-10-PCS; 2021-05-11)
PROC: 30233K1 Transfusion of Nonautologous Frozen Plasma into Peripheral Vein, Percutaneous Approach (ICD-10-PCS; 2021-05-11)
PROC: 30233N1 Transfusion of Nonautologous Red Blood Cells into Peripheral Vein, Percutaneous Approach (ICD-10-PCS; 2021-05-11)
PROC: 30233R1 Transfusion of Nonautologous Platelets into Peripheral Vein, Percutaneous Approach (ICD-10-PCS; 2021-05-11)
PROC: 0BH17EZ Insertion of Endotracheal Airway into Trachea, Via Natural or Artificial Opening (ICD-10-PCS; 2021-05-11)
PROC: 05HY33Z Insertion of Infusion Device into Upper Vein, Percutaneous Approach (ICD-10-PCS; 2021-05-11)
PROC: 0W9G0ZZ Drainage of Peritoneal Cavity, Open Approach (ICD-10-PCS; 2021-05-12)
PROC: 0DB80ZZ Excision of Small Intestine, Open Approach (ICD-10-PCS; 2021-05-12)
PROC: 0DNU0ZZ Release Omentum, Open Approach (ICD-10-PCS; 2021-05-12)
PROC: 0HB7XZZ Excision of Abdomen Skin, External Approach (ICD-10-PCS; 2021-05-12)
PROC: 0DN60ZZ Release Stomach, Open Approach (ICD-10-PCS; 2021-05-12)
PROC: 0DBF0ZZ Excision of Right Large Intestine, Open Approach (ICD-10-PCS; 2021-05-12 17:13)
PROC: 0DBL0ZZ Excision of Transverse Colon, Open Approach (ICD-10-PCS; 2021-05-12 17:13)
PROC: 0DBU0ZZ Excision of Omentum, Open Approach (ICD-10-PCS; 2021-05-12 17:13)
DX: A41.9 Sepsis, unspecified organism (principal); R65.21 Severe sepsis with septic shock; E43 Unspecified severe protein-calorie malnutrition; J18.9 Pneumonia, unspecified organism; K56.2 Volvulus; K63.1 Perforation of intestine (nontraumatic); K65.1 Peritoneal abscess; J96.01 Acute respiratory failure with hypoxia; K43.6 Other and unspecified ventral hernia with obstruction, without gangrene; N17.9 Acute kidney failure, unspecified; L03.311 Cellulitis of abdominal wall; Z68.42 Body mass index [BMI] 45.0-49.9, adult; E87.0 Hyperosmolality and hypernatremia; E87.1 Hypo-osmolality and hyponatremia; E87.2 Acidosis; K55.9 Vascular disorder of intestine, unspecified; T83.84XA Pain due to genitourinary prosthetic devices, implants and grafts, initial encounter; I12.9 Hypertensive chronic kidney disease with stage 1 through stage 4 chronic kidney disease, or unspecified chronic kidney disease; N18.9 Chronic kidney disease, unspecified; D64.9 Anemia, unspecified; K66.0 Peritoneal adhesions (postprocedural) (postinfection); Y84.6 Urinary catheterization as the cause of abnormal reaction of the patient, or of later complication, without mention of misadventure at the time of the procedure; M79.3 Panniculitis, unspecified; K21.9 Gastro-esophageal reflux disease without esophagitis; D75.82 Heparin induced thrombocytopenia (HIT); E11.22 Type 2 diabetes mellitus with diabetic chronic kidney disease; E66.01 Morbid (severe) obesity due to excess calories; E78.00 Pure hypercholesterolemia, unspecified; E78.5 Hyperlipidemia, unspecified; E86.0 Dehydration; E86.1 Hypovolemia; E87.5 Hyperkalemia; E87.6 Hypokalemia; E87.70 Fluid overload, unspecified; H57.04 Mydriasis; Y95 Nosocomial condition; I25.10 Atherosclerotic heart disease of native coronary artery without angina pectoris; I45.10 Unspecified right bundle-branch block; M1A.9XX0 Chronic gout, unspecified, without tophus (tophi); E87.8 Other disorders of electrolyte and fluid balance, not elsewhere classified; Z88.8 Allergy status to other drugs, medicaments and biological substances; Z86.16 Personal history of COVID-19; Z68.35 Body mass index [BMI] 35.0-35.9, adult; Z82.3 Family history of stroke; Z83.3 Family history of diabetes mellitus; Z82.49 Family history of ischemic heart disease and other diseases of the circulatory system; Z20.822 Contact with and (suspected) exposure to COVID-19
CPT/HCPCS: 36415; 36430; 36600; 71045; 74018; 74176; 78582; 80048; 80053; 80202; 81001; 82150; 82330; 82435; 82570; 82803; 82947; 82948; 83605; 83690; 83735; 83935; 84100; 84132; 84145; 84295; 84300; 84484; 85014; 85018; 85025; 85027; 85060; 85378; 85384; 85610; 85730; 86850; 86900; 86901; 86923; 86927; 87040; 87088; 87635; 88304; 92950; 93005; 93306; 93356; 93931; 93970; 94002; 94003; 94640; 94664; 97039; 99291; A4344; A4606; A9540; A9558; C1751; C1894; C9113; G0378; J0171; J0330; J0610; J0690; J0692; J1100; J1170; J1450; J1644; J1650; J1720; J1756; J1815; J1940; J2001; J2020; J2185; J2370; J2405; J2543; J2704; J2710; J3010; J3370; J3490; J7030; J7040; J7050; J7060; J7070; J7120; P9016; P9017; P9034; P9045; P9046; Q9963